=== PATIENT | male | born 1985 | race Caucasian/White ===

== ENCOUNTER → 2025-03-04 | Outpatient (CLI) | payer OTHER, SELFPAY ==
[2025-03-05 18:08] LABS: H. PYLORI STOOL AG Positive (Negative)
[2025-03-09 08:10] LABS: Calprotectin, Stool 14 ug/g (0-120)
== END | disposition home or self-care (01) ==
PROVIDERS: Referring Provider Student in an Organized Health Care Education/Training Program; Visit Provider Student in an Organized Health Care Education/Training Program
DX: A04.8 Other specified bacterial intestinal infections (principal); K58.9 Irritable bowel syndrome, unspecified
CPT/HCPCS: 36415; 83993; 87177; 87209; 87329; 87338; 87493

== ENCOUNTER → 2025-04-15 | Outpatient (CLI) | payer OTHER, SELFPAY ==
--- OUTSIDE RECORDS SUMMARY | 2025-04-15 14:52 | XMS RPT_ITS | CCD ---
Author Organization 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 Name Role Phone Kevin Crawley MD Primary Care Provider Unavailable Primary Care Provider Unavailabl e BERNADETTE BAEZLPI Attending Unavailable JUJU BAEZ Attending Unavailable KEVIN CRAWLEY Primary Care Unavailable JUJU BAEZ Attending Unavailable KEVIN CRAWLEY Primary Care Unavailable JUJU BAEZ Attending Unavailable KEVIN CRAWLEY Primary Care Unavailable Bibiana Castillo Attending Unavailable Bibiana Castillo Attending Unavailable Bibiana Castillo Referring Unavailable Care Physician, No Primary Primary Care Unava ilable AURELIO CLOUD Attending Unavailable SELF Referring Unavailable JAYLON GÓMEZ CHIDI Attending Unavailable MARY ESTRADA Referring Unavailable JAYLON GÓMEZ Attending Unavailable Medications Current Medications Medication Drug Class(es) Dates Sig (Normalized) Sig (Original) amphetamine aspartate 5 mg / amphetamine sulfate 5 mg / dextroamphetamine saccharate 5 mg / dextroamphetamine sulfate 5 mg oral tablet (14 sources) Central Nervous System Stimulant take 1 tablet by mouth once daily dextroamphetamine- amphetamine (ADDERALL) 20 mg tablet Take 20 mg by mouth once daily. Active Comment on above: Take 20 mg by mouth once daily. doxycycline monohydrate 100 mg oral capsule (14 sources) Tetracycline-class Drug Start: 06-05-2018 doxycycline monohydrate (MONODOX) 100 mg capsule Take 1 tablet twice a day for 10 days. Take with full glass of water & do not lie down for 1 hour after taking 20 capsule 06/05/2018 Active Comment on above: Take 1 tablet twice a day for 10 days. Take with full glass of water & do not lie down for 1 hour after taking griseofulvin 250 mg oral tablet (1 source) Start: 01-19-2025 End: 02-02-2025 take 1 tablet by mouth once daily Griseofulvin Ultramicrosize 250 mg tab Take 1 tablet by mouth once daily for 14 days. 14 tablet 01/19/2025 02/02/2025 Active metroNIDAZOLE 0.01 mg/mg topical gel (14 sources) Nitroimidazole Antimicrobial Start: 02-19-2020 metroNIDAZOLE (METROGEL) 1 % gel Indications: Rhinophyma , Rosacea apply to face daily 60 g 2 02/19/2020 Active Comment on above: apply to face daily mupirocin 0.02 mg/mg topical ointment (14 sources) RNA Synthetase Inhibitor Antibacterial Start: 07-07-2018 mupirocin (BACTROBAN) 2 % ointment Apply to nose twice a day up to 4 weeks 30 g 2 07/07/2018 Active Comment on above: Apply to nose twice a day up to 4 weeks predniSONE 20 mg oral tablet (1 source) Start: 01-19-2025 take 1 tablet by mouth three times daily, then take 1 tablet by mouth twice daily, then take 1 tablet by mouth once daily, then take 0.5 tablet by mouth once daily predniSONE (DELTASONE) 20 mg tablet 20 mg p.o. 3 times daily for 3 days, 20 mg p.o. twice daily for 2 days, 20 mg once a day for 1 day, half a tablet 1 day for 1 day 15 tablet 01/19/2025 Active sulfacetamide sodium 80 mg/ml / sulfur 40 mg/ml medicated liquid soap (14 sources) Sulfonamide Antibacterial Start: 09-26-2017 sulfacetamide sodium-sulfur (SUMAXIN TS) 8-4 % susp Indications: Rhinophyma , Rosacea wash face daily 1 Bottle 2 09/26/2017 Active Comment on above: wash face daily tretinoin 1 mg/ml topical cream (20 sources) Retinoid Start: 11-05-2022 End: 11-09-2024 tretinoin (RETIN-A) 0.1 % cream Apply a pea size amt every night 45 g 2 11/09/2024 Active Start: 11-12-2018 tretinoin (RET IN-A) 0.05 % cream Apply thin layer to entire face at bedtime 45 g 3 11/12/2018 Active Comment on above: Apply thin layer to entire face at bedtime Apply a pea size amt every night triamcinolone acetonide 0.001 mg/mg topical ointment (3 sources) Corticosteroid Start: 12-25-2024 End: 12-25-2024 triamcinolone acetonide (KENALOG) 0.1 % ointment Indications: Rash Apply as directed to affected area twice daily. 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 Other inflammatory condition of skin (7 sources) Rosacea; Translations: [Rosacea, unspecified] Chronic Other inflammatory condition of skin (1 source) Rhinophyma; 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] Onset: 06-08-2024 Chronic Other inflammatory condition of skin (1 source) Rosacea, unspecified; Translations: [Rosacea] Onset: 06-08-2024 Chronic Other skin disorders (10 sources) Scar conditions and fibrosis of skin; Translations: [Scar conditions and fibrosis of skin] Episodic Other skin disorders (1 source) Skin tag; Translations: [Other hypertrophic disorders of the skin] 06-24-2023 Episodic Other skin disorders (1 source) Sebaceous gland hypertrophy; Translations: [Other specified follicular disorders] 11-09-2024 Episodic Other skin disorders (1 source) Eruption; Translations: [Rash and other nonspecific skin eruption] 12-25-2024 Episodic Other skin disorders (1 source) Rash and other nonspecific skin eruption; Translations: [Rash] Onset: 12-25-2024 Episodic Residual codes; unclassified (2 sources) Patient encounter status; Translations: [Encounter for cosmetic surgery] Episodic Residual codes; unclassified (1 source) Encounter for cosmetic surgery; Translations: [Encounter for cosmetic procedure] Onset: 03-01-2025 Episodic Past or Other Problems Problem Classification Problem Date Documented Da te Episodic/Chronic Other skin disorders (1 source) Other specified follicular disorders; Translations: [Sebaceous hyperplasia] Onset: 11-09-2024 Episodic Other skin disorders (1 source) Scar conditions and fibrosis of skin; Translations: [Scar conditions and fibrosis of skin] Onset: 06-08-2024 Episodic Results Test Name Value Interpretation Reference Range Facility [facility]onal 03-21-2025 CNOV Office Visit (UCMN[facility] ) CELSO UP ([id number]) 1985 M Date Time Provider Department 03/21/25 8:35 PM JAYLON GÓMEZ [facility] During your visit today, we recorded the following information about you: Temperature Pulse Respiration Blood pressure 97.5 degrees 71/minute 16/minute 118/75 Weight 81.6 kg Jaylon Gómez MD 03/21/2025 8:50 PM Signed [facility] Subjective Celso Up is a 39 year old male. Patient presents with: Refill Request: Needs refill on tetracycline 500 mg , states he doesn't have enough for dosage 39-year-old patient presented here needs prescribed tetracycline 500 mg 4 times daily, patient was prescribed for 2 weeks but he is not short for a day and a half of the prescription. Patient is being treated for H. pylori. No other complaint. Review of Systems All other systems reviewed and are negative. Objective BP 118/75 (BP Position: Sitting) Pulse 71 Temp 36.4 ?C (97.5 ?F) Resp 16 Wt 81.6 kg (180 lb) SpO2 100% BMI 28.69 kg/m? Physical Exam Vitals and nursing note reviewed. Constitutional: Appearance: Normal appearance. HENT: Head: Normocephalic. Nose: Nose normal. Mouth/Throat: Mouth: Mucous membranes are moist. Cardiovascular: Rate and Rhythm: Normal rate and regular rhythm. Pulses: Normal pulses. Heart sounds: Normal heart sounds. Pulmonary: Effort: Pulmonary effort is normal. Breath sounds: Normal breath sounds. Neurological: Mental Status: He is alert. {ASSESSMENT/PLAN: 1. H. pylori infection - ICD9: 041.86, ICD10: A04.8 I gave the patient refill for 6 more dose will have him follow-up with his PCP treatment plans to discuss. Jaylon Gómez MD MDM Procedures Allergies As of Date: 03/21/2025 (No Known Allergies) Date Reviewed: 03/21/2025 Reviewed by: Jaylon Gómez MD - Fully Assessed Reason for Visit: Refill Request [94] Cmt: Needs refill on tetracycline 500 mg , states he doesn't have enough for dosage Primary Visit Diagnosis:H. pylori infection [A04.8] Order(s):tetracycline (SUMYCIN) 500 mg capTake 1 capsule by mouth four times daily for 2 days.Disp: 6 capsuleRfl: 0 Prescriptions as of 03/21/2025 - metroNIDAZOLE (FLAGYL) 500 mg tablet TAKE 1 TABLET BY MOUTH EVERY 6 HOURS FOR 2 WEEKS - pantoprazole DR (PROTONIX) 40 mg tablet TAKE 1 TABLET BY MOUTH ONCE DAILY FOR 2 WEEKS - tetracycline (SUMYCIN) 500 mg cap Take 1 capsule by mouth four times daily for 2 days. - predniSONE (DELTASONE) 20 mg tablet 20 mg p.o. 3 times daily for 3 days, 20 mg p.o. twice daily for 2 days, 20 mg once a day for 1 day, half a tablet 1 day for 1 day - triamcinolone acetonide (KENALOG) 0.1 % ointment Apply as directed to affected area twice daily. - tretinoin (RETIN-A) 0.1 % cream Apply a pea size amt every night - metroNIDAZOLE (METROGEL) 1 % gel apply to face daily - tretinoin (RETIN-A) 0.05 % cream Apply thin layer to entire face at bedtime - mupirocin (BACTROBAN) 2 % ointment Apply to nose twice a day up to 4 weeks - dextroamphetamine-amphetamine (ADDERALL) 20 mg tablet Take 20 mg by mouth once daily. - sulfacetamide sodium-sulfur (SUMAXIN TS) 8-4 % susp wash face daily Problem List As Of Date: 03/21/2025 (None) Prescriptions ordered this encounter Disp Refills Start End TETRACYCLINE 500 MG CAPSULE 6 ca* 0 03/21/2025 03/23/2025 Route: PO Sig: Take 1 capsule by mouth four times daily for 2 days. Medications Discontinued During This Encounter Prescriptions - doxycycline monohydrate (MONODOX) 100 mg capsule (Discontinued) Reported on 01/19/2025 - tetracycline (SUMYCIN) 500 mg cap (Discontinued) TAKE 1 CAPSULE BY MOUTH EVERY 6 HOURS FOR 2 WEEKS Encounter Status:Closed by JAYLON GÓMEZ on 03/21/25 [facility] [id number] 03-15-2025 [id number] TESTING PERFORMED AT [facility]. ORIGINAL REPORT ON FILE IN LAB CONTAINS ADDITIONAL TEST SITE INFORMATION. Giardia Lamblia EIA NEGATIVE [facility] Comment on above: Performed By: #### M 100.6796, M600.5000, L3100.1950, L7000.0700, M7400.3302 #### [facility] [address] [place], [address] Ova and Parasites 8623on OP OVA AND PARASITES EX AM, ROUTINE These results were obtained using wet preparation(s) and trichrome stained smear. This test does not include testing for Crytosporidium parvum, Cyclospora, or Microsporidia. One negative specimen does not rule out the possibility of a parasitic infection. TESTING PERFORMED AT [email or web address]. ORIGINAL REPORT ON FILE IN LAB CONTAINS ADDITIONAL TEST SITE INFORMATION. Ova/Parasite Exam NO OVA, CYSTS, OR PARASITES FOUND. Normal [facility] Comment on above: Performed By: #### M 100.6796, M600.5000, L3100.1950, L7000.0700, M7400.3302 #### [facility] [address] [place], [address] Calprotectin, Stoolon [address] 14 ug/g Normal 0-120 [facility] Comment on above: Result Comment: Conc entration Interpretation Follow-Up < 5 - 50 ug/g Normal None >50 -120 ug/g Borderline Re-evaluate in 4-6 weeks >120 ug/g Abnormal Repeat as clinically indicated Performed at: [facility] [id number] Scrap Charger: Kyler Luevano MD, Phone: [phone] Performed By: #### M [id number], M600.5000, L3100.1950, L7000.0700, M7400.3301 #### [facility] [address] [place], [address] H. PYLORI STOOL AGon 025 H PYLORI STL AG Positive Abnormal Negative [facility] Comment on above: Result Comment: Perf ormed at: [facility] [id number] Scrap Charger: Delmer Perez PhD, Phone: [phone] Performed By: #### M 1006796, M600.5000, L3100.1950, L7000.0700, M7400.3309 #### [facility] [address] [place], [address] CDIFF (PCR)on 03-04-2025 CDIFF Pending 027 027 NAP1-B1 Presumptive Negative *for epidemiolologic???use C. Diff PCR Negative- No toxigenic C. Diff Detected Normal [facility] Comment on above: Performed By: #### M 100.6796, M600.5000, L3100.1950, L7000.0700, M7400.3302 #### [facility] [address] [place], [address] Gastroenterology Visit Repor ton 03-04-2025 Gastroenterology Visit Report [facility] [address] [place] [address] OFFICE VISIT Date of Service: 03/04/25 MR#: [id number] Acct: [id number] Name: CELSO UP Rep #: [id number] : 1985 Provider: MARY Aguirre Age/Sex: 39/M Location: [facility] Status: Signed Intake Intake Visit Reasons: POSITIVE H PYLORI Chief Complaint: H. pylori IgG positive Allergies No Known Allergies Allergy (Verified 03/01/25 14:30) Medications ???Medication ???Instructions ???Recorded ???Confirmed ???Type cetirizine 10 mg capsule (Zyrtec) 10 mg PO QDAY PRN 03/04/25 History fexofenadine 60 mg capsule 60 mg PO Q12H 03/04/25 03/04/25 Hi story prednisone 5 mg tablet 5 mg PO QDAY 03/04/25 03/04/25 His tory tretinoin 0.01 % topical gel 1 applic topical QHS 03/04/2502/11 History PFSH Medical History Urticaria H. pylori infection Family History Father Diabetes Social History Smoking Status: Never smoker alcohol intake: never HPI HPI Chief Complaint: H. pylori IgG positive Details: CELSO UP, is a 39 M who presents to the office today for establishment. Patient referred from dermatologists after he had a positive serum H. pylori IgG. Patient started having diarrhea and hives in October 2024. He was having bowel movements nonstop and eventually started to take Imodium. Since then his bowels have not gone back to normal. He is having 1-2 soft bowel movements per day. He has dull crampy lower abdominal pain. Originally when this started he was doing a keto diet but he has since stopped this. He denies any medication changes. He denies upper GI symptoms including heartburn, nausea, vomiting or epigastric pain. He continues to work with dermatology for his hives. At first they thought it was fungal but hives were refractory to antifungals. He is currently on prednisone for treatment of his hives. Patient had plastic surgery about a year ago to remove loose skin in his chest and abdomen. He notes that when the hives started it seemed to follow the suture lines but is now diffuse all over his body. ROS Const Constitutional: Positive for fatigue; No fever(s) or weight change ENT ENT: No difficulty swallowing Gastro GI: Positive for change in bowel habits; No abdominal pain, belching, bloating, change in stool character, coffee ground emesis, constipation, cramping, diarrhea, heartburn, difficulty swallowing, feeling full early, excessive flatus, incontinent of stools, Vomiting blood/hematemesis, Blood in stool, loose stools, Black,tarry stools, nausea/dyspepsia, pain with swallowing, vomiting or other Musc Musculoskeletal: No joint pain Skin Skin: Positive for itchy eyes and rash; No yellowing of the eye Psych Psychiatric: No anxiety and No depression Endo Endocrine: Positive for fatigue; No weight change Aller/Imm Allergy/Immunologic: Positive for itchy eyes Ellis/Lymp Hematologic/Lymphatic: No easy bleeding or easy bruising Exam Const General: cooperative and comfortable Nutritional Appearance: average body habitus Orientation: alert [facility] Head: normal to inspection Ears: hearing grossly normal bilaterally Eyes General: appearance normal, both eyes and all related structures Neck Neck: normal visual inspection Chest Chest palpation inspection: normal inspection of the chest Resp Effort Inspection: normal respiratory effort Cardio Rate: regular rate Rhythm: regular rhythm GI Inspection: normal to inspection and scar Auscultation: normal bowel sounds Palpation: soft and nontender Assessment and Plan Assessment and Plan (1) H. pylori infection: Status: Acute Plan: Celso is a 39-year-old male patient here today for evaluation after having a positive serum IgG H. pylori test and loose stool since October 2024. Patient symptoms started with whole body urticaria and diarrhea for few weeks. He started Imodium and the diarrhea subsided but he continues to have abnormal and soft stools. Patient was seen by sap hana developer who ordered numerous testing which included the H. pylori test. This is the only test that was positive so far. Will order H. pylori stool antigen, enteric pathogens O P, Giardia and calprotectin. Pending results will treat H. pylori with quadruple therapy. 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 We may consider colonoscopy and/or EGD in the future. - Stool testing - Treat H. pylori if positive - Consider colonoscopy and/or EGD - Follow-up as needed (2) Loose stools: Status: Acute Orders: Orders Calprotectin, Stool Today A04.8 - Other specified bacterial intestinal infections CDIFF (PCR) Today A04. (more content not included)... [facility] CELSO UP ([id number]) 1985 M Date Time Provider Department 03/01/25 8:45 AM JUJU BAEZ During your visit today, we recorded the following information about you: Janet Stover LPN 03/01/2025 8:33 AM Signed Direct line to schedule [phone] or email [email or web address] Main campus: Saturday AND [place] (Uzair Martell): Saturday AND Saturday [facility] Care Instructions It is normal for the skin to be red and swollen after your laser treatment. Most of the redness and swelling subsides within 24 to 48 hours, but occasionally can last for up to one week. -It is fine to wear makeup on the treated area the day after treatment -Do not rub, scratch, or pick at the treated area -You may apply ice to reduce swelling and discomfort for the first 4 hours after your treatment- it is best to ice immediately after your treatment and for 10 minutes of each hour for the 4 hours after your treatment -Do not exercise for 24 hours after your treatment -Please call the office immediately if the area becomes tender, reddened or shows signs of infection. - Avoid exposure to the sun. If sun exposure is expected, apply an SPF 30 or higher sunblock to prevent pigmentation changes until the lesion is healed. Care Of The Treated Area -You can apply a gentle moisturizer or Aqpahor/Vaseline to the treated area. It is important to keep the area moist until healed. -Showers are permitted, but gently pat the area dry. Do not rub with a towel or washcloth as the area is extremely delicate while the bruising (purpura) are present. -Any discomfort you may have (usually not lasting more than a few hours, if any) can be relieved with acetaminophen (Tylenol) or ice packs. If you have any questions or concern, please call the office where you had your treatment. [phone] ([place]) or [phone] ([facility]) Juju Baez MD Dermatology AND Cosmetic Surgery [facility] Instructions Pre-treatment instructions: Tell your doctor if you are taking Isotretinoin (Accutane) or have taken in the last 6 months Avoid having a suntan or using a spray ruby/brozer before treatment You cannot be treated if you are Treatment: When you arrive, a topical anesthetic will be applied to your skin for approximately 1 hour. It is best to arrive with clean skin. You may wish to bring something to help you pass the time (ie book, laptop, iPad, magazine) The length of your time in the office varies, but is usually ~90 minutes. Although there can be some areas treated that feel sensitive, the laser is generally well tolerated Post treatment: Any gentle cleanser is fine (Dove, Cetaphil, Neutrogena). Do not use any harsh, anti-aging/exfoliating cleansers, medications, or scrubs for 1 week after your treatment. You will experience a sunburn-like, burning sensation for about 1 hour after your treatment, then virtually no discomfort. Some areas can feel more sensitive to touch for slightly longer Cool compresses or ice packs are used post treatment for comfort and to decrease swelling. It is fine to take ibuprofen/tylenol for discomfort What to expect in the days after treatment: Redness- You will notice a pink/red tone to your skin for 4-7 days. This is a normal sign that the skin is healing. Some areas can turn to a bronze-like color and last for a few weeks. This is normal. Pinpoint spotting- this is normal and the spots can range from brown to red. Do not try to scrub off, they will slough off in several days Swelling- this varies from person to person and generally resolves in 2-3 days Sunscreen- it is important to avoid sun exposure for 2 weeks post treatment as well as in between your treatments. Use sunscreen with UVA/UVB protection (either with zinc oxide or titanium dioxide) with an SPF of at least 30. Avoid direct sunlight and wear sun protective clothing (wide brimmed hat) Itching/dryness- These are common symptoms once the skin has healed initially. Flakiness and dry crusting will gradually clear. Use bland moisturizers only and/or moisturizing sunscreens. Avoid anti-aging moisturizers with AHA or retinol in them Makeup AND sunscreen may be applied after 48 hours Unexpected complications and unwanted side effects such as blistering and scabbing rarely occur. Please call the office immediately if any of these develop What to expect later: More than one treatment is needed to achieve desired results. Both you and your doctor can discuss the number of treatments needed, that are spaced apart at a minimum of 4-6 weeks Over the following weeks and months there will be progressive improvement and evolution of beneficial changes associated with the appearance of healthy youthful skin If you have any questions or concern, please call the office at [phone] (more content not included)... Normal [facility] CALLIE BY IFA WITH REFLEXon Nuclear Ab Ql (S) Negative Normal Negative [facility] Comment on above: Order Comment: Speci men Type: BLOOD SPECIMENOrdering Facility: [facility] Address: [address] [place], [place] [id number] Result Comment: Anti -nuclear antibody test is used as an aid in diagnosis of systemic autoimmune diseases. Where positive and clinically warranted, follow-up using disease-specific testing is recommended. Low positive titers are not uncommon with advanced age, certain chronic infections, and malignancies among others. Test methodology: Indirect fluorescence immunoassay (IFA) using HEp-2 cells. Performed By: #### A NAIFR ####[facility] [id number] [place] [address] [place] B. burgdorferi IgG and IgM p avery (S)on 02-11-2025 B. burgdorferi IgG+IgM Qn (S) Negative Normal Negative [facility] Comment on above: Order Comment: Speci men Type: BLOOD SPECIMENOrdering Facility: [facility] Address: [address] [place] [address] Result Comment: Rece nt infection with B. burgdorferi sensu lato cannot be excluded if the specimen collected within four weeks after the onset of signs and symptoms or within six weeks after a known tick exposure. Clinical and epidemiological correlation is required. Performed By: #### 3 4942-3 ####[facility] [id number] [place] [address] [place] CBC W Auto Differential pane l (Bld)on 02-11-2025 Basophils (Bld) [#/Vol] 10*3/uL Normal <0.11 [facility] Comment on above: Order Comment: Parminder landry Type: BLOOD SPECIMEN Ordering Facility: [facility] Address: [address] [place] [address] Performed By: #### 5 7021-8 #### [facility] CLIA [id number] [facility] [address] [place] [address] [place] Basophils/100 WBC (Bld) 0.3 % Normal [facility] Comment on above: Order Comment: Speci gris Type: BLOOD SPECIMEN Ordering Facility: [facility] Address: [address] [place] [address] Performed By: #### 5 7021-8 #### [facility] CLIA [id number] [address] [facility] [address] [place] [address] [place] Differential cell count method Nom (Bld) Auto Normal [facility] Comment on above: Order Comment: Speci men Type: BLOOD SPECIMEN Ordering Facility: [facility] Address: [address] [place] [address] Performed By: #### 5 7021-8 #### [facility] CLIA [id number] [address] [place] [address] [place] Eosinophils (Bld) [#/Vol] 0.23 10*3/uL Normal <0.46 [facility] Comment on above: Order Comment: Speci men Type: BLOOD SPECIMEN Ordering Facility: [facility] Address: [address] [place] [address] Performed By: #### 5 7021-8 #### [facility] CLIA [id number] [address] [facility] [address] [place] [address] [place] Eosinophils/100 WBC (Bld) 3.4 % Normal [facility] Comment on above: Order Comment: Speci men Type: BLOOD SPECIMEN Ordering Facility: [facility] Address: [address] [place] [address] Performed By: #### 5 7021-8 #### [facility] CLIA [id number] [address] [place] [address] [place] Erythrocyte distribution width (RBC) [Ratio] 12.6 % Normal 11.5-15.0 [facility] Comment on above: Order Comment: Speci men Type: BLOOD SPECIMEN Ordering Facility: [facility] Address: [address] [place] [address] Performed By: #### 5 7021-8 #### [facility] CLIA [id number] [address] [place], [place] [address] [place] Hematocrit (Bld) [Volume fraction] 45.2 % Normal 39.0-51.0 [facility] Comment on above: Order Comment: Speci men Type: BLOOD SPECIMEN Ordering Facility: [facility] Address: [address] [place] [address] Performed By: #### 5 7021-8 #### [facility] CLIA [id number] [address] [place] [address] [place] Hemoglobin (Bld) [Mass/Vol] 15.9 g/dL Normal 13.0-17.0 [facility] Comment on above: Order Comment: Speci men Type: BLOOD SPECIMEN Ordering Facility: [facility] Address: [address] [place] [address] Performed By: #### 5 7021-8 #### [facility] CLIA [id number] [address] [place] [address] [place] Immature granulocytes (Bld) [#/Vol] 10*3/uL Normal <0.10 [facility] Comment on above: Order Comment: Speci men Type: BLOOD SPECIMEN Ordering Facility: [facility] D[facility] community [facility] Address: [address] [place] [address] Performed By: #### 5 7021-8 #### [facility] CLIA [id number] [address] [place] [address] [place] Immature granulocytes/100 WBC (Bld) 0.3 % Normal [facility] Comment on above: Order Comment: Speci men Type: BLOOD SPECIMEN Ordering Facility: [facility] Address: [address] [place] [address] Performed By: #### 5 7021-8 #### [facility] CLIA [id number] [address] [facility] [address] [place], [place] [address] [place] Lymphocytes (Bld) [#/Vol] 1.20 10*3/uL Normal 1.00-4.00 [facility] Comment on above: Order Comment: Speci men Type: BLOOD SPECIMEN Ordering Facility: [facility] D[facility] community [facility] Address: [address] [place] [address] Performed By: #### 5 7021-8 #### [facility] CLIA [id number] [address] [facility] [address] [place] [address] [place] Lymphocytes/100 WBC (Bld) 17.9 % Normal [facility] Comment on above: Order Comment: Speci men Type: BLOOD SPECIMEN Ordering Facility: [facility] Address: [address] [place] [address] Performed By: #### 5 7021-8 #### [facility] CLIA [id number] [address] [facility] [address] [place] [address] [place] MCH (RBC) [Entitic mass] 29.3 pg Normal 26.0-34.0 [facility] Comment on above: Order Comment: Speci men Type: BLOOD SPECIMEN Ordering Facility: [facility] Address: [address] [place] [address] Performed By: #### 5 7021-8 #### [facility] CLIA [id number] [address] [facility] [address] [address] [place] MCHC (RBC) [Mass/Vol] 35.2 g/dL Normal 30.5-36.0 [facility] Comment on above: Order Comment: Speci men Type: BLOOD SPECIMEN Ordering Facility: [facility] Address: [address] [place] [address] Performed By: #### 5 7021-8 #### [facility] CLIA [id number] [address] [facility] [address] [place] [address] [place] MCV (RBC) [Entitic vol] 83.4 fL Normal 80.0-100.0 [facility] Comment on above: Order Comment: Speci men Type: BLOOD SPECIMEN Ordering Facility: [facility] Address: [address] [place] [address] Performed By: #### 5 7021-8 #### [facility] CLIA [id number] [address] [place] [address] [place] Monocytes (Bld) [#/Vol] 0.33 10*3/uL Normal <0.87 [facility] Comment on above: Order Comment: Speci men Type: BLOOD SPECIMEN Ordering Facility: [facility] Address: [address] [place] [address] Performed By: #### 5 7021-8 #### [facility] CLIA [id number] [address] [place] [address] [place] Monocytes/100 WBC (Bld) 4.9 % Normal [facility] Comment on above: Order Comment: Speci men Type: BLOOD SPECIMEN Ordering Facility: [facility] Address: [address] [place] [address] Performed By: #### 5 7021-8 #### [facility] CLIA [id number] [address] [place] [address] [place] Neutrophils (Bld) [#/Vol] 4.89 10*3/uL Normal 1.45-7.50 [facility] Comment on above: Order Comment: Speci men Type: BLOOD SPECIMEN Ordering Facility: [facility] Address: [address] [place] [address] Performed By: #### 5 7021-8 #### [facility] CLIA [id number] [address] [place] [address] [place] Neutrophils/100 WBC (Bld) 73.2 % Normal [facility] Comment on above: Order Comment: Speci men Type: BLOOD SPECIMEN Ordering Facility: [facility] D[facility] community [facility] Address: [address] [place] [address] Performed By: #### 5 7021-8 #### [facility] CLIA [id number] [address] [place] [address] [place] Platelet mean volume (Bld) [Entitic vol] 10.3 fL Normal 9.0-12.7 [facility] Comment on above: Order Comment: Speci men Type: BLOOD SPECIMEN Ordering Facility: [facility] Address: [address] [place] [address] Performed By: #### 5 7021-8 #### [facility] CLIA [id number] [address] [facility] [address] [place] [address] [place] Platelets (Bld) [#/Vol] 243 10*3/uL Normal 150-400 [facility] Comment on above: Order Comment: Speci men Type: BLOOD SPECIMEN Ordering Facility: [facility] Address: [address] [place] [address] Performed By: #### 5 7021-8 #### [facility] CLIA [id number] [address] [place] [address] [place] RBC (Bld) [#/Vol] 5.42 10*6/uL Normal 4.20-6.00 [facility] Comment on above: Order Comment: Speci men Type: BLOOD SPECIMEN Ordering Facility: [facility] Address: [address] [place] [address] Performed By: #### 5 7021-8 #### [facility] CLIA [id number] [address] [address] [place] WBC (Bld) [#/Vol] 6.69 10*3/uL Normal 3.70-11.00 [facility] Comment on above: Order Comment: Speci men Type: BLOOD SPECIMEN Ordering Facility: [facility] Address: [address] [place] [address] Performed By: #### 5 7021-8 #### [facility] CLIA [id number] [address] [facility] [address] [place] [address] [facility] [place] Comprehensive metabolic 2000 panelon 02-11-2025 Albumin [Mass/Vol] 4.4 g/dL Normal 3.2-5.0 [facility] Comment on above: Order Comment: Speci men Type: BLOOD SPECIMEN Ordering Facility: [facility] Address: [address] [place] [address] Performed By: #### 2 4323-8 #### [facility] CLIA [id number] [address] [place] [address] [place] ALP [Catalytic activity/Vol] 85 U/L Normal 45-117 [facility] Comment on above: Order Comment: Speci men Type: BLOOD SPECIMEN Ordering Facility: [facility] Address: [address] [place] [address] Performed By: #### 2 4323-8 #### [facility] CLIA [id number] [address] [place] [address] [place] ALT [Catalytic activity/Vol] 25 U/L Normal 13-61 [facility] Comment on above: Order Comment: Speci men Type: BLOOD SPECIMEN Ordering Facility: [facility] Address: [address] [place] [address] Result Comment: Resu lts may be falsely depressed after the administration of Sulfasalazine and/or Sulfapyridine. Performed By: #### 2 4323-8 #### [facility] CLIA [id number] [address] [place] [address] [place] Anion gap [Moles/Vol] 10 mmol/L Normal 5-16 [facility] Comment on above: Order Comment: Speci men Type: BLOOD SPECIMEN Ordering Facility: [facility] Address: [address] [place] [address] Performed By: #### 2 4323-8 #### [facility] CLIA [id number] [address] [place] [address] [place] AST [Catalytic activity/Vol] 20 U/L Normal 8-34 [facility] Comment on above: Order Comment: Speci men Type: BLOOD SPECIMEN Ordering Facility: [facility] Address: [address] [place] [address] Result Comment: Resu lts may be falsely depressed after the administration of Sulfasalazine and/or Sulfapyridine. Performed By: #### 2 4323-8 #### [facility] CLIA [id number] [address] [place] [address] [place] Bilirubin [Mass/Vol] 0.6 mg/dL Normal 0.2-1.0 [facility] Comment on above: Order Comment: Speci men Type: BLOOD SPECIMEN Ordering Facility: [facility] Address: [address] [place] [address] Performed By: #### 2 4323-8 #### [facility] CLIA [id number] [address] [place] [address] [place] Calcium [Mass/Vol] 10.0 mg/dL Normal 8.5-10.5 [facility] Comment on above: Order Comment: Speci men Type: BLOOD SPECIMEN Ordering Facility: [facility] Address: [address] [place] [address] Performed By: #### 2 4323-8 #### [facility] CLIA [id number] [address] [place] [address] [place] Chloride [Moles/Vol] 100 mmol/L Normal 98-107 [facility] Comment on above: Order Comment: Speci men Type: BLOOD SPECIMEN Ordering Facility: [facility] Address: [address] [place] [address] Performed By: #### 2 4323-8 #### [facility] CLIA [id number] [address] [place] [address] [place] CO2 [Moles/Vol] 29 mmol/L Normal 21-32 [facility] Comment on above: Order Comment: Speci men Type: BLOOD SPECIMEN Ordering Facility: [facility] Derm[facility]ology community [facility] Address: [address] [place] [address] Performed By: #### 2 4323-8 #### [facility] CLIA [id number] [address] [place] [address] [place] Creatinine [Mass/Vol] 0.91 mg/dL Normal 0.50-1.40 [facility] Comment on above: Order Comment: Speci men Type: BLOOD SPECIMEN Ordering Facility: [facility] Address: [address] [place] [address] Result Comment: Alejandra ents receiving either N-Acetylcysteine (NAC) or Metamizole prior to venipuncture, may have falsely depressed results. Performed By: #### 2 4323-8 #### [facility] CLIA [id number] [address] [place] [address] [place] eGFRcr SerPlBld CKD-EPI 2020 109 mL/min/1.73m??? Normal >=60 [facility] Comment on above: Order Comment: Speci men Type: BLOOD SPECIMEN Ordering Facility: [facility] Address: [address] [place] [address] Result Comment: Daija mated Glomerular Filtration Rate (eGFR) is calculated using the 2020 CKD-EPI creatinine equation. This equation utilizes serum creatinine, sex, and age as parameters. The creatinine assay has traceable calibration to isotope dilution-mass spectrometry. Refer to KDIGO guidelines for clinical interpretation. In patients with unstable renal function, e.g. those with acute kidney injury, the eGFR may not accurately reflect actual GFR. Performed By: #### 2 4323-8 #### [facility] CLIA [id number] [address] [place] [address] [place] Glucose [Mass/Vol] 84 mg/dL Normal 70-100 [facility] Comment on above: Order Comment: Speci men Type: BLOOD SPECIMEN Ordering Facility: [facility] Address: [address] [place] [address] Result Comment: The [place] Diabetes Association (ADA) provides guidance for cutoff values for fasting glucose and random glucose. The ADA defines fasting as no caloric intake for at least 8 hours. Fasting plasma glucose results between 100 to 125 mg/dL indicate increased risk for diabetes (prediabetes). Fasting plasma glucose results greater than or equal to 126 mg/dL meet the criteria for diagnosis of diabetes. In the absence of unequivocal hyperglycemia, results should be confirmed by repeat testing. In a patient with classic symptoms of hyperglycemia or hyperglycemic crisis, random plasma glucose results greater than or equal to 200 mg/dL meet the criteria for diagnosis of diabetes. Reference: Standards of Medical Care in Diabetes 2016, [employer] Diabetes Association. Diabetes Care. 2016.39(Suppl 1). Results may be falsely elevated after the administration of Sulfapyridine. Results may be falsely depressed after the administration of Sulfasalazine. Performed By: #### 2 4323-8 #### [facility] CLIA [id number] [address] [place] [address] [place] Potassium [Moles/Vol] 3.7 mmol/L Normal 3.5-5.1 [facility] Comment on above: Order Comment: Parminder landry Type: BLOOD SPECIMEN Ordering Facility: [facility] Address: [address] [place] [address] Performed By: #### 2 4323-8 #### [facility] CLIA [id number] [address] [place] [address] [place] Protein [Mass/Vol] 7.9 g/dL Normal 6.0-8.5 [facility] Comment on above: Order Comment: Parminder landry Type: BLOOD SPECIMEN Ordering Facility: [facility] Address: [address] [place] [address] Performed By: #### 2 4323-8 #### [facility] CLIA [id number] [address] [place] [address] [place] Sodium [Moles/Vol] 139 mmol/L Normal 136-145 [facility] Comment on above: Order Comment: Randeei gris Type: BLOOD SPECIMEN Ordering Facility: [facility] Address: [address] [place] [address] Performed By: #### 2 4323-8 #### [facility] CLIA [id number] [address] [place] [address] [place] Urea nitrogen [Mass/Vol] 11 mg/dL Normal - [facility] Comment on above: Order Comment: Parminder landry Type: BLOOD SPECIMEN Ordering Facility: [facility] Address: [address] [place] [address] Performed By: #### 2 4323-8 #### [facility] CLIA [id number] [address] [place] [address] [place] H. pylori IgG IA Qlon 2024 H. PYLORI IGG, QUAL Positive Abnormal Negative [facility] Comment on above: Order Comment: Speccrispin landry Type: BLOOD SPECIMENOrdering Facility: [facility] Address: [address] [place] [address] Result Comment: The result suggests recent or past infection with H. pylori. Clinical correlation is required. Where clinically warranted, follow up testing is suggested including Urea Breath Test or H. pylori stool antigen test. Performed By: #### 1 7859-0 ####[facility] [id number] [place] [address] [place] HBV core Ab Ser Qlon HBV core Ab Ql (S) Non-Reactive Normal Nonreactive [facility] Comment on above: Order Comment: Parminder landry Type: BLOOD SPECIMEN Ordering Facility: [facility] Address: [address] [place] [address] Result Comment: Resu lts were obtained with the [employer] IM IgM assay. Values obtained with different manufactures' assay methods may not be used interchangeably. Performed By: #### 1 1572-5, 81261-4, 05435-7, 67312-6, 5195-3 #### [facility] CLIA [id number] [address] [place] [address] [place] HBV surface Ab Ql (S)on HBV surface Ab Qn (S) <3.10 Normal [facility] Comment on above: Order Comment: Speci gris Type: BLOOD SPECIMEN Ordering Facility: [facility] Address: [address] [place] [address] Result Comment: STAT US OF IMMUNITY Protective Immunity: greater than or equal to 10 mIU/mL (Traceable to WHO International Reference Preparation) No Protective Immunity: less than 10 mIU/mL Note: The magnitude of the measured result above the cutoff is not indicative of the total amount of antibody present. Performed By: #### 1 1572-5, 28256-3, 23626-4, 71639-8, 5195-3 #### [facility] CLIA [id number] [address] [place] [address] OF [facility] HBV surface Ab Ser Qlon 10-0 HBV surface Ab Ql (S) Negative Normal [facility] Comment on above: Order Comment: Speci gris Type: BLOOD SPECIMEN Ordering Facility: [facility] Address: [address] [place] [address] Result Comment: No s erological evidence of immunity to Hepatitis B Virus. Performed By: #### 1 1572-5, 32553-5, 97882-9, 67767-8, 519-3 #### [facility] CLIA [id number] [address] [place] [address] OF [facility] HBV surface Ag Ser Qlon 10-0 HBV surface Ag Ql (S) Non-Reactive Normal Equivocal, Nonreactive [facility] Comment on above: Order Comment: Speci gris Type: BLOOD SPECIMENOrdering Facility: [facility] Address: [address] [place] [address] Result Comment: Resu lts were obtained with the [employer] IM IgM assay. Values obtained with different manufactures' assay methods may not be used interchangeably. Performed By: #### 1 1572-5, 43214-8, 89843-1, 22082-0, 5195-3 ####[facility] [id number] [place] [address] [place] HCV Ab Ser Qlon 02-11-2025 HCV Ab Ql (S) Non-Reactive Normal Nonreactive [facility] Comment on above: Order Comment: Speci men Type: BLOOD SPECIMENOrdering Facility: [facility] Address: [address] [place] [address] Result Comment: Scre ening test negative Nonreactive HCV Antibody Screen is consistent with no HCV infection, unless recent infection is suspected or other evidence exists to indicate HCV infection. Results were obtained with the [employer] IM IgG assay. Values obtained with different manufactures' assay methods may not be used interchangeably. Performed By: #### 1 1572-5, 04827-9, 90196-0, 83968-6, 5195-3 ####[facility] [id number] [place] [address] [place] HIV 1+2 Ab IA Qlon HIV 1+2 Ab+HIV1 p24 Ag IA Ql Non-Reactive Normal Nonreactive [facility] Comment on above: Order Comment: Speci men Type: BLOOD SPECIMENOrdering Facility: [facility] Address: [address] [place] [address] Result Comment: Nonr eactive: Less than 1.0 index value Specimens with an index value <1.0 are considered nonreactive for antibodies to HIV-1, HIV-2, and p24 antigen by the [employer] IM CHIV assay. Performed By: #### 3 1201-7 ####[facility] [id number] [place] [address] [place] Rheumatoid fact SerPl-aCncon 02-11-2025 Rheumatoid factor Qn 7 [IU]/mL Normal 0-15 [facility] Comment on above: Order Comment: Speci men Type: BLOOD SPECIMEN Ordering Facility: [facility] Address: [address] [place] [address] Performed By: #### 1 1572-5, 83095-4, 08190-1, 65583-5, 5195-3 #### [facility] CLIA [id number] [address] [place] [id number] [place] THYROGLOBULIN ANTIBODYon Thyroglobulin Ab Qn [IU]/mL Normal <4.0 [facility] Comment on above: Order Comment: Parminder landry Type: BLOOD SPECIMENOrdering Facility: [facility] Address: [address] [place] [address] Result Comment: The Thyroglobulin Antibody test was performed using the [employer] DXI paramagnetic particle chemiluminescent immunoassay method. Results obtained with different assay methods or kits cannot be used interchangeably. Performed By: #### T [facility] ####[facility] [id number] [place] [address] [place] THYROGLOBULIN BY LC-MS/MS, S BRENDA OR PLASMA, FOR THYROGLOBULIN ANTIBODY INTERFERENCEon 02-11-2025 THYROGLOBULIN, LC-MS/MS 18.6 ng/mL Normal 1.3-31.8 [facility] Comment on above: Order Comment: Parminder landry Type: BLOOD SPECIMENOrdering Facility: [facility] Address: [address] [place] [address] Result Comment: Resu lts obtained with different test methods or kits cannot be used interchangeably. Thyroglobulin results, regardless of concentration, should not be interpreted as absolute evidence for the presence or absence of papillary or follicular thyroid cancer. Thyroglobulin testing is not recommended for use as a screening procedure to detect the presence of thyroid cancer in the general population. INTERPRETIVE INFORMATION: Thyroglobulin by LC-MS/MS, Serum/Plasma Lower limit of detection for Thyroglobulin by LC-MS/MS is 0.5 ng/mL. This test was developed and its performance characteristics determined by [facility]. It has not been cleared or approved by the [place] Food and Drug Administration. This test was performed in a CLIA certified laboratory and is intended for clinical purposes. Performed By: [facility] [address] [place] [id number] Emr Trainer: Hany Kurtz MD, PhD CLIA Number: [id number] Performed By: #### T [facility] ####[facility]ITAL[facility] [id number] [place] [address] THYROID PEROXIDASE ANTIBODYo n 02-11-2025 TPO Ab Qn [IU]/mL Normal <5.6 [facility] Comment on above: Order Comment: Speci gris Type: BLOOD SPECIMENOrdering Facility: [facility] Address: [address] [place] [address] Result Comment: Thyr oid Peroxidase Antibody test is used as an aid in diagnosis of autoimmune thyroid disease. Clinical correlation is required. Performed By: #### M ICRO ####[facility] [id number] [address] [place] TRYPTASE BLOODon 02-11-2025 Tryptase [Mass/Vol] 7.9 ug/L Normal <8.4 [facility] Comment on above: Order Comment: Speci gris Type: BLOOD SPECIMENOrdering Facility: [facility] Address: [address] [place] [address] Performed By: #### T RYPT ####[facility] [id number] [address] [place] CNOVon 01-19-2025 CNOV Office Visit ([facility] ) CELSO UP ([id number]) 1985 M Date Time Provider Department 01/19/25 8:55 PM JAYLON GÓMEZ [facility] During your visit today, we recorded the following information about you: Temperature Pulse Respiration Blood pressure 99.3 degrees 89/minute 20/minute 118/69 Weight 80.7 kg Jaylon Gómez MD 01/19/2025 9:08 PM Signed [facility] Celso Up is a 39 year old male. Patient presents with: Skin Rashes: Entered by patient Rash: Rash all over his body that started back in june . Stated that he has has syphilis biopsy done that was negative. 39-year-old patient presented here as a rash that comes and goes. Other than the itching and irritation no other complaint. Patient states that he used some antifungal and the rash cleared up but when he stopped using the antifungal the rash comes back. He talked to his sap hana developer they told him they do not believe his fungal. Patient is here for second opinion no other complaint. Review of Systems Skin: Positive for rash. All other systems reviewed and are negative. Objective BP 118/69 Pulse 89 Temp 37.4 ?C (99.3 ?F) (Temporal) Resp 20 Wt 80.7 kg (178 lb) SpO2 98% BMI 28.37 kg/m? Physical Exam Vitals and nursing note reviewed. Constitutional: Appearance: Normal appearance. Cardiovascular: Rate and Rhythm: Normal rate and regular rhythm. Pulses: Normal pulses. Heart sounds: Normal heart sounds. Pulmonary: Effort: Pulmonary effort is normal. Breath sounds: Normal breath sounds. Abdominal: Palpations: Abdomen is soft. Skin: Comments: Skin is erythematous and swollen there is a slightly raised lesion, there is general distribution. Neurological: Mental Status: He is alert. {ASSESSMENT/PLAN: 1. Acute dermatitis - ICD9: 692.9, ICD10: L30.9 I discussed with the patient and we will plan on a short course of prednisone. And a short course of griseofulvin will have him follow-up with his sap hana developer treatments and plans to discuss. Jaylon Gómez MD MDM Procedures Referring Provider: SELF [200] Allergies As of Date: 01/19/2025 (No Known Allergies) Date Reviewed: 01/19/2025 Reviewed by: Jaylon Gómez MD - Fully Assessed Reason for Visit: Skin Rashes [4234] Cmt: Entered by patient Rash [1087] Cmt: Rash all over his body that started back in june . Stated that he has has syphilis biopsy done that was negative. Primary Visit Diagnosis:Acute dermatitis [L30.9] Order(s):Griseofulvin Ultramicrosize 250 mg tabTake 1 tablet by mouth once daily for 14 days.Disp: 14 tabletRfl: 0 predniSONE (DELTASONE) 20 mg svgaez31 mg p.o. 3 times daily for 3 days, 20 mg p.o. twice daily for 2 days, 20 mg once a day for 1 day, half a tablet 1 day for 1 dayDisp: 15 tabletRfl: 0 Prescriptions as of 01/19/2025 - Griseofulvin Ultramicrosize 250 mg tab Take 1 tablet by mouth once daily for 14 days. - predniSONE (DELTASONE) 20 mg tablet 20 mg p.o. 3 times daily for 3 days, 20 mg p.o. twice daily for 2 days, 20 mg once a day for 1 day, half a tablet 1 day for 1 day - triamcinolone acetonide (KENALOG) 0.1 % ointment Apply as directed to affected area twice daily. - tretinoin (RETIN-A) 0.1 % cream Apply a pea size amt every night - metroNIDAZOLE (METROGEL) 1 % gel apply to face daily - tretinoin (RETIN-A) 0.05 % cream Apply thin layer to entire face at bedtime - mupirocin (BACTROBAN) 2 % ointment Apply to nose twice a day up to 4 weeks - doxycycline monohydrate (MONODOX) 100 mg capsule Take 1 tablet twice a day for 10 days. Take with full glass of water AND do not lie down for 1 hour after taking - dextroamphetamine-amphetamine (ADDERALL) 20 mg tablet Take 20 mg by mouth once daily. - sulfacetamide sodium-sulfur (SUMAXIN TS) 8-4 % susp wash face daily Problem List As Of Date: 01/19/2025 (None) Prescriptions ordered this encounter Disp Refills Start End GRISEOFULVIN ULTRAMICROSIZE 250 MG T* 14 t* 0 01/19/2025 02/02/2025 Route: PO Sig: Take 1 tablet by mouth once daily for 14 days. PREDNISONE 20 MG TABLET 15 t* 0 01/19/2025 Si mg p.o. 3 times daily for 3 days, 20 mg p.o. twice daily for 2 days, 20 mg once a day for 1 day, half a tablet 1 day for 1 day Encounter Status:Closed by JAYLON GÓMEZ on 01/19/25 [facility] CNOVon 12-25-2024 CNOV Office Visit ([facility] ) CELSO UP ([id number]) 1985 M Date Time Provider Department 12/25/24 3:40 PM AURELIO CLOUD [facility] During your visit today, we recorded the following information about you: Temperature Pulse Respiration Blood pressure 97.3 degrees 93/minute 16/minute 119/75 Weight 82.2 kg Micha Sanz MA 12/25/2024 4:14 PM Signed Pt here today for rash on left forearm since Saturday. Pt states it itches and wei. NALDO Trammell December 25, 2024 3:46 PM Aurelio Cloud APRN.[employer]PA[employer] 12/25/2024 3:57 PM Signed Contact Dermatitis You have been diagnosed with contact dermatitis. Contact dermatitis is a skin irritation. It is caused by contact with something. Sometimes the rash is from an allergic reaction. Sometimes it is from a simple chemical irritation. Some symptoms are itching and redness of the skin. In bad cases, there may be blistering. This condition is not often dangerous. However, it can be frustrating. Contact dermatitis can be caused, for example, by detergents, soaps and shampoos. It can be caused by nickel (found in jewelry) or poison lalita/oak. Other possible causes are wool, clothing starch, cleaning fluids, etc. Often, the item that caused the rash cannot be identified. If you have contact dermatitis often, see a sap hana developer (skin doctor) or ore roaster. There, you will have tests to find out the cause. If you are polly enough to find out the cause, you can avoid it in the future. General treatment for this condition includes: Antihistamines (anti-itch medicines). Some antihistamines can limit itching. This includes diphenhydramine (Benadryl?): 1-2 (25 mg) tablets every 6 hours). You can get this medicine without a prescription. It also includes prescription strength hydroxyzine (Atarax?). Antihistamines can make you drowsy. Therefore, use them with caution. Avoid them if you must be alert (on the job or when driving, for example). Steroid (cortisone) cream. Apply steroid creams sparingly (in small amounts) 2 times each day to the affected areas. These creams can be used until the skin irritation is gone and the skin feels normal to the touch. Put steroid creams on clean, damp skin. Then cover with a thick layer of moisturizer. As a general rule, do not use steroid cream on the face for more than 7 days. Do not use on other areas of the body for more than 14 days. Follow your doctor's instructions if he or she says that longer use is okay. Moisturizers. Put on skin moisturizers many times a day. 5 times or more is a good amount. Good moisturizers ?seal in? water and moisture to the skin. Use them directly after (on top of) steroid creams. Also use them (alone) many more times to keep the skin from looking and feeling dry. Use greasy, stiff moisturizers that are too thick to pour. Eucerin? cream (not lotion) is an example of a good brand. It can be bought over the counter (without a prescription). Vaseline? is a less expensive, good skin moisturizer. Food shortening (Crisco?) is another example of such a moisturizer. YOU SHOULD SEEK MEDICAL ATTENTION IMMEDIATELY, EITHER HERE OR AT THE NEAREST EMERGENCY DEPARTMENT, IF ANY OF THE FOLLOWING OCCURS: Symptoms get worse even with treatment. You get signs of infection at the affected areas. Signs include redness, pus, pain, swelling or fever (temperature higher than 100.4?F / 38?C). Aurelio Cloud APRN.ROCHELLE 12/25/2024 4:14 PM Signed [facility] Celso Up is a 39 year old male. Patient presents with: Skin Rashes: Entered by patient HPI Celso Up is a 39-year-old male presenting with a rash on the left forearm. Celso reports a rash on the left forearm that began as a small lesion resembling a fernandes on Saturday. The lesion has since expanded and spread within the same area, becoming pruritic. He notes that the rash is unresponsive to antifungal cream, which he had been using for a previous case of tinea cruris that has since resolved. He also tried hydrocortisone cream without significant improvement. The rash appears calmer in the morning but is exacerbated by sun exposure. He denies pain, fever, or chills. Celso is uncertain if the initial lesion was a bite and does not recall any specific incident that could have caused it. Review of Systems Constitutional: (-) fever, (-) chills Skin: (+) left forearm rash, (+) pruritus, (-) pain, (-) burning sensation Objective BP 119/75 (BP Site: Right Arm, BP Cuff Size: Large Adult) Pulse 93 Temp 36.3 ?C (97.3 ?F) Resp 16 Wt 82.2 kg (181 lb 1.7 oz) SpO2 97% BMI 28.87 kg/m? Physical Exam Vitals and nursing note reviewed. Constitutional: General: He is not in acute distress. Appearance: Normal appearance. He is not ill-appearing, toxic-appearing or diaphoretic. HENT: Head: Normocephalic and atrauma (more content not included)... Normal [facility] CNOVon 11-09-2024 CNOV Office Visit ([facility] ) CELSO UP ([id number]) 1985 M Date Time Provider Department 11/09/24 9:30 AM JUJU BAEZ During your visit today, we recorded the following information about you: Janet Stover LPN 11/09/2024 9:24 AM Addendum Direct line to schedule [phone] or email [email or web address] Main campus: Saturday AND [place] (Uzair Martell): Saturday AND Saturday CAUTERY POST CARE INSTRUCTIONS -Do not apply makeup to treated areas for 24 hours -Apply vaseline or aquaphor twice a day until all lesions are healed -It is normal for your skin to take up to 7 days to look and feel normal (there will be small crusted, scabbed areas immediately after treatment and can last up to 7 days) -Immediately after your procedure it is safe to use gentle skin cleansers (Dove, Cetaphil) and gentle facial moisturizers -Most people need a series of treatments (at least 2) to notice significant improvement. *DO NOT USE ANY GLYCOLIC ACIDS, RETINOIDS, OR ANTI-AGING/ ANTI-ACNE CARE PRODUCTS UNTIL AT LEAST 7 DAYS AFTER YOUR TREATMENT. V-beam Post Care Instructions It is normal for the skin to be red and swollen after your laser treatment. Most of the redness and swelling subsides within 24 to 48 hours, but occasionally can last for up to one week. -It is fine to wear makeup on the treated area the day after treatment -Do not rub, scratch, or pick at the treated area -You may apply ice to reduce swelling and discomfort for the first 4 hours after your treatment- it is best to ice immediately after your treatment and for 10 minutes of each hour for the 4 hours after your treatment -Do not exercise for 24 hours after your treatment -Please call the office immediately if the area becomes tender, reddened or shows signs of infection. - Avoid exposure to the sun. If sun exposure is expected, apply an SPF 30 or higher sunblock to prevent pigmentation changes until the lesion is healed. Care Of The Treated Area -You can apply a gentle moisturizer or Aqpahor/Vaseline to the treated area. It is important to keep the area moist until healed. -Showers are permitted, but gently pat the area dry. Do not rub with a towel or washcloth as the area is extremely delicate while the bruising (purpura) are present. -Any discomfort you may have (usually not lasting more than a few hours, if any) can be relieved with acetaminophen (Tylenol) or ice packs. If you have any questions or concern, please call the office where you had your treatment. [phone] ([place]) or [phone] ([facility]) Juju Baez MD Dermatology AND Cosmetic Surgery [facility] Dual Instructions Pre-treatment instructions: Tell your doctor if you are taking Isotretinoin (Accutane) or have taken in the last 6 months Avoid having a suntan or using a spray ruby/brozer before treatment You cannot be treated if you are Treatment: When you arrive, a topical anesthetic will be applied to your skin for approximately 1 hour. It is best to arrive with clean skin. You may wish to bring something to help you pass the time (ie book, laptop, iPad, magazine) The length of your time in the office varies, but is usually ~90 minutes. Although there can be some areas treated that feel sensitive, the laser is generally well tolerated Post treatment: Any gentle cleanser is fine (Dove, Cetaphil, Neutrogena). Do not use any harsh, anti-aging/exfoliating cleansers, medications, or scrubs for 1 week after your treatment. You will experience a sunburn-like, burning sensation for about 1 hour after your treatment, then virtually no discomfort. Some areas can feel more sensitive to touch for slightly longer Cool compresses or ice packs are used post treatment for comfort and to decrease swelling. It is fine to take ibuprofen/tylenol for discomfort What to expect in the days after treatment: Redness- You will notice a pink/red tone to your skin for 4-7 days. This is a normal sign that the skin is healing. Some areas can turn to a bronze-like color and last for a few weeks. This is normal. Pinpoint spotting- this is normal and the spots can range from brown to red. Do not try to scrub off, they will slough off in several days Swelling- this varies from person to person and generally resolves in 2-3 days Sunscreen- it is important to avoid sun exposure for 2 weeks post treatment as well as in between your treatments. Use sunscreen with UVA/UVB protection (either with zinc oxide or titanium dioxide) with an SPF of at least 30. Avoid direct sunlight and wear sun protective clothing (wide brimmed hat) Itching/dryness- These are common symptoms once the skin has healed initially. Flakiness and dry crusting will gradually clear. Use bland moisturizers only and/or moisturizing sunscreens. Avoid anti-aging moisturizers with AHA or (more content not included)... Normal [facility] CNOVon 08-03-2024 CNOV Office Visit ([facility] ) CELSO UP ([id number]) 1985 M Date Time Provider Department 08/03/24 10:30 AM [facility]UJU BAEZ [facility] During your visit today, we recorded the following information about you: Janet Stover LPN 08/03/2024 10:12 AM Signed Direct line to schedule [phone] or email [email or web address] Main campus: Saturday AND [place] (Uzair Martell): Saturday AND Saturday V-beam Post Care Instructions It is normal for the skin to be red and swollen after your laser treatment. Most of the redness and swelling subsides within 24 to 48 hours, but occasionally can last for up to one week. -It is fine to wear makeup on the treated area the day after treatment -Do not rub, scratch, or pick at the treated area -You may apply ice to reduce swelling and discomfort for the first 4 hours after your treatment- it is best to ice immediately after your treatment and for 10 minutes of each hour for the 4 hours after your treatment -Do not exercise for 24 hours after your treatment -Please call the office immediately if the area becomes tender, reddened or shows signs of infection. - Avoid exposure to the sun. If sun exposure is expected, apply an SPF 30 or higher sunblock to prevent pigmentation changes until the lesion is healed. Care Of The Treated Area -You can apply a gentle moisturizer or Aqpahor/Vaseline to the treated area. It is important to keep the area moist until healed. -Showers are permitted, but gently pat the area dry. Do not rub with a towel or washcloth as the area is extremely delicate while the bruising (purpura) are present. -Any discomfort you may have (usually not lasting more than a few hours, if any) can be relieved with acetaminophen (Tylenol) or ice packs. If you have any questions or concern, please call the office where you had your treatment. [phone] ([place]) or [phone] ([facility]) Juju Baez MD Dermatology AND Cosmetic Surgery [facility] Dual Instructions Pre-treatment instructions: Tell your doctor if you are taking Isotretinoin (Accutane) or have taken in the last 6 months Avoid having a suntan or using a spray ruby/brozer before treatment You cannot be treated if you are Treatment: When you arrive, a topical anesthetic will be applied to your skin for approximately 1 hour. It is best to arrive with clean skin. You may wish to bring something to help you pass the time (ie book, laptop, iPad, magazine) The length of your time in the office varies, but is usually ~90 minutes. Although there can be some areas treated that feel sensitive, the laser is generally well tolerated Post treatment: Any gentle cleanser is fine (Dove, Cetaphil, Neutrogena). Do not use any harsh, anti-aging/exfoliating cleansers, medications, or scrubs for 1 week after your treatment. You will experience a sunburn-like, burning sensation for about 1 hour after your treatment, then virtually no discomfort. Some areas can feel more sensitive to touch for slightly longer Cool compresses or ice packs are used post treatment for comfort and to decrease swelling. It is fine to take ibuprofen/tylenol for discomfort What to expect in the days after treatment: Redness- You will notice a pink/red tone to your skin for 4-7 days. This is a normal sign that the skin is healing. Some areas can turn to a bronze-like color and last for a few weeks. This is normal. Pinpoint spotting- this is normal and the spots can range from brown to red. Do not try to scrub off, they will slough off in several days Swelling- this varies from person to person and generally resolves in 2-3 days Sunscreen- it is important to avoid sun exposure for 2 weeks post treatment as well as in between your treatments. Use sunscreen with UVA/UVB protection (either with zinc oxide or titanium dioxide) with an SPF of at least 30. Avoid direct sunlight and wear sun protective clothing (wide brimmed hat) Itching/dryness- These are common symptoms once the skin has healed initially. Flakiness and dry crusting will gradually clear. Use bland moisturizers only and/or moisturizing sunscreens. Avoid anti-aging moisturizers with AHA or retinol in them Makeup AND sunscreen may be applied after 48 hours Unexpected complications and unwanted side effects such as blistering and scabbing rarely occur. Please call the office immediately if any of these develop What to expect later: More than one treatment is needed to achieve desired results. Both you and your doctor can discuss the number of treatments needed, that are spaced apart at a minimum of 4-6 weeks Over the following weeks and months there will be progressive improvement and evolution of beneficial changes associated with the appearance of healthy youthful skin If you have any questions or concern, please call the office at [phone] (more content not included)... Normal [facility] CNOVon 06-08-2024 CNOV Office Visit ([facility] ) CELSO UP ([id number]) 1985 M Date Time Provider Department 06/08/24 9:45 AM JUJU BAEZ During your visit today, we recorded the following information about you: Janet Stover LPN 06/08/2024 9:20 AM Signed Direct line to schedule [phone] or email [email or web address] Main campus: Saturday AND [place] (Uzair Martell): Saturday AND Saturday Yahir Dual Instructions Pre-treatment instructions: Tell your doctor if you are taking Isotretinoin (Accutane) or have taken in the last 6 months Avoid having a suntan or using a spray ruby/brozer before treatment You cannot be treated if you are Treatment: When you arrive, a topical anesthetic will be applied to your skin for approximately 1 hour. It is best to arrive with clean skin. You may wish to bring something to help you pass the time (ie book, laptop, iPad, magazine) The length of your time in the office varies, but is usually ~90 minutes. Although there can be some areas treated that feel sensitive, the laser is generally well tolerated Post treatment: Any gentle cleanser is fine (Dove, Cetaphil, Neutrogena). Do not use any harsh, anti-aging/exfoliating cleansers, medications, or scrubs for 1 week after your treatment. You will experience a sunburn-like, burning sensation for about 1 hour after your treatment, then virtually no discomfort. Some areas can feel more sensitive to touch for slightly longer Cool compresses or ice packs are used post treatment for comfort and to decrease swelling. It is fine to take ibuprofen/tylenol for discomfort What to expect in the days after treatment: Redness- You will notice a pink/red tone to your skin for 4-7 days. This is a normal sign that the skin is healing. Some areas can turn to a bronze-like color and last for a few weeks. This is normal. Pinpoint spotting- this is normal and the spots can range from brown to red. Do not try to scrub off, they will slough off in several days Swelling- this varies from person to person and generally resolves in 2-3 days Sunscreen- it is important to avoid sun exposure for 2 weeks post treatment as well as in between your treatments. Use sunscreen with UVA/UVB protection (either with zinc oxide or titanium dioxide) with an SPF of at least 30. Avoid direct sunlight and wear sun protective clothing (wide brimmed hat) Itching/dryness- These are common symptoms once the skin has healed initially. Flakiness and dry crusting will gradually clear. Use bland moisturizers only and/or moisturizing sunscreens. Avoid anti-aging moisturizers with AHA or retinol in them Makeup AND sunscreen may be applied after 48 hours Unexpected complications and unwanted side effects such as blistering and scabbing rarely occur. Please call the office immediately if any of these develop What to expect later: More than one treatment is needed to achieve desired results. Both you and your doctor can discuss the number of treatments needed, that are spaced apart at a minimum of 4-6 weeks Over the following weeks and months there will be progressive improvement and evolution of beneficial changes associated with the appearance of healthy youthful skin If you have any questions or concern, please call the office at [phone] Juju Baez MD Dermatology AND Cosmetic Surgery Juju Baez MD 06/08/2024 9:53 AM Signed Last lasers 02/24/24 -Nose continuing to improve, happy with results -Using Tretinoin 0.1% -vbeam out of service today, will do fraxel NONABLATIVE FRACTIONAL RESURFACING (FRAXEL DUAL) Pre-photos AND informed consent obtained prior to first treatment. Treatment: 19 Diagnosis: scar Wavelength: 1550 nm Treatment area: nose (laser benign lesions < 14) Energy (mJ): 70 Treatment settin Passes screen: 8 Total energy (kJ)0.39 Patient tolerated procedure well. Ice provided immediately after treatment for discomfort. Discussed redness, swelling, and peeling that will occur over the next several days. Patient to use liberal emollient use with Aquaphor or Vaseline. No make up for 4 days. Ice and written post care instructions provided. 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 Normal [facility] HEPACon 02-09-2019 Hep A IgM Ab Negative Normal Negative [facility] [place] Comment on above: Performed By: #### R SC, HEPAC, HIV #### [place] [address] Hep A IgM Ab Int No serological evide nce of a current Hepatitis A infection. Normal [facility] [place] Comment on above: Performed By: #### R SC, HEPAC, HIV #### [place] [address] Hep B Core IgM Ab Negative Normal Negative [facility] [place] Comment on above: Result Comment: No s erological evidence of ACUTE Hepatitis B infection. Performed By: #### R SC, HEPAC, HIV #### [place] [address] Hep B Surf Ag Negative Normal Negative [facility] [place] Comment on above: Performed By: #### R SC, HEPAC, HIV #### [place] [address] Hep C Ab Negative Normal Negative [facility] [place] Comment on above: Performed By: #### R SC, HEPAC, HIV #### [place] [address] Hep C Ab Int No serological evide nce of Hepatitis C infection, although levels of anti-HCV may be undetectable in early infection. Normal [facility] [place] Comment on above: Performed By: #### R SC, HEPAC, HIV #### [place] [id number] HIVon 02-09-2019 HIV 1/2 Ab Normal Negative [facility] [place] Comment on above: Result Comment: Nega tive Specimen is negative for anti-HIV-1 and anti-HIV-2. Performed By: #### R SC, HEPAC, HIV #### [place] [address] RPRon 02-07-2019 Reagin Ab RPR Ql (S) Non-Reactive Normal Non-Reactive [facility] [place] Comment on above: Result Comment: The RPR test is a non-treponemal assay useful as an aid in the diagnosis of primary and secondary syphilis. It converts to positive generally within 2 weeks after the appearance of a lesion. This test is also useful for monitoring response to antibiotic therapy. A positive RPR screening test will be followed by the FTA ABS test. False positive RPR tests may occur in 1) patients with underlying autoimmune disorders, 2) elderly patients, 3) , and 4) other conditions with abnormal serum globulins. Performed By: #### R SC, HEPAC, HIV #### [facility] [address] [place] [id number] Demetrius 10-23-2018 OPERATIVE REPORT Normal [facility] OR DATE OF SERVICE: PREOPERATIVE DIAGNOSIS: Cosmetic body contouring. POSTOPERATIVE DIAGNOSIS: Cosmetic body contouring. OPERATION: 1. Upper back lift. 2. Revision of prior breast reduction for gynecomastia. SURGEON: Sae Beltran MD ANESTHESIA: General. INDICATIONS: This is a gentleman who had significant weight loss. He has significant posterior back laxity and has elected at this time to proceed with a back lift. He understands the scar, location of scars, the risks, drifting of scars, seroma, hematoma, pain, unsatisfactory scar. In addition, he had previously undergone a formal reduction resection for gynecomastia. He has some residual skin and breast tissue in the lower portion and this will undergo revision. He understands the procedure. I discussed using his existing scars and possibly extending them further. He also has a little bit high position of his nipple-areolar complex, which I will try to lower slightly as well. He understands there is no guarantee of final results, asymmetry, possible need for additional surgery. He is aware of the increased risk of healing issues in weight loss patients. PROCEDURE: Before going to the operating room, the patient was marked in a standing position, confirming the amount of skin resection in the back and in the chest. He was then taken to the operating room. He was placed in the prone position after undergoing general anesthesia. Careful padding was performed. His back was then prepped and draped in a sterile fashion. Next, the marked skin excision was confirmed with magalis. Once this was confirmed, he then had tumescent solution infiltrated to help with hemostasis. Next, the superior and inferior incisions were then made, carrying them anteriorly-inferiorly and blending with his prior incision from his reduction previously. The skin was then resected above the loose areolar tissue on the back below the fascia. The left and right sides were resected. Hemostasis was then achieved throughout. Next, the tissues were closed, first with a No. 1 barbed PDS suture unidirectional, closing the fascia, catching the loose areolar tissue to help close the space, and this was done in a running fashion across the back. This was then followed by a running deep dermal 0 PDO Quill and subcuticular 3-0 Monocryl. Just at the most [facility] PATIENT NAME: CELSO UP [address] [place] MEDICAL REC #: [id number] [place] [address] ADMIT DATE: DISCHARGE DATE: OPERATIVE REPORT ATTENDING PHY: Sae Beltran MD anterior portion, magalis were placed as this would need to be carried in continuity with the anterior approach. Next, Xeroform and dressings were applied. Patient was then turned in a supine position and re-prepped and draped. Tumescent solution was then infiltrated into each breast. After waiting 10 minutes, power-assisted liposuction was performed, and I aspirated approximately 75 mL of tissue from the central breast on each side. Next, the incision that was posterior was then carried in continuity anteriorly on both sides with undermining of the breasts to allow it to be draped, and this allowed a wedge excision of breast tissue to remove the redundant skin and additional breast parenchyma bilaterally. Hemostasis was then achieved throughout. Next, a running 0 PDO Quill was placed deep, catching the chest wall itself again to close space, and this was done on both sides. This was then followed by deep dermal 0 PDO Quill and a subcuticular 3-0 Monocryl bilaterally. Upon completion, all tissues were pink and healthy. Dressings were applied. He was put in a compression vest. Counts were correct. He tolerated the procedure and was taken to the recovery room in satisfactory condition. Sae Beltran MD [id number] SSI File#: [id number] Verified/Reviewed by 10/28/18 1235 CARST [facility] PATIENT NAME: CELSO UP [address] [place] MEDICAL REC #: [id number] [place] [address] ADMIT DATE: DISCHARGE DATE: OPERATIVE REPORT ATTENDING PHY: Sae Beltran MD [facility] [place], [place] 02-27-2018 OPERATIVE REPORT [facility] OR DATE OF SERVICE: PREOPERATIVE DIAGNOSIS: Cosmetic contouring of thighs. POSTOPERATIVE DIAGNOSIS: Cosmetic contouring of thighs. OPERATION: Bilateral thighplasty, medial. SURGEON: Sae Beltran MD ANESTHESIA: General. INDICATIONS: This is a gentleman who had significant weight loss. He has predominantly excess skin with minimal actual lipodystrophy on both medial thighs. We discussed the procedure, discussed the scar coming from the groin down to the medial thigh. He understands the risks including unsatisfactory scar, drifting of scar, tissue loss, irregularities, seroma, hematoma, chronic edema, numbness, and need for additional surgery. PROCEDURE: Before going to the operating room, the patient was marked in standing position. He confirmed the plan. Once in the OR, he underwent general anesthesia. His lower extremities were then prepped and draped in sterile fashion. The markings were confirmed on both sides by tailor tacking each side with magalis to confirm the amount of skin resection, and this was done with the legs abducted and knees bent in order to make sure there was no distortion of the perineal region. Once this was confirmed, the left leg was put back and magalis were removed, and then tumescent solution was infiltrated. While this tumescent was working, attention was turned to the opposite side which had magalis removed and was injected with tumescent solution. Both sides had approximately 300 mL injected. After waiting ten minutes, power-assisted liposuction performed, both to defat a small area in the proximal posterior portion as well as to release attachments of the skin for removal of the skin. Once this was completed on both sides, attention was turned to the right side. The incisions were made and then the skin was then removed from a proximal to distal direction in an avulsion fashion. This left a nice plane to help preserve lymphatics. There was no bleeding. Next, examination of the patient showed he had extremely thin skin with very thin dermis and almost no visible fascia for closure. This was done first with fascial deep dermal running 2-0 Monoderm Quill. This was then followed by a subcuticular 4-0 Monocryl. This was followed by Dermabond. Attention was then turned to the left side. Once again, the incisions were made and, from a proximal to distal direction, the skin was removed in an avulsion fashion. Hemostasis was present. Closure was then performed as was done on the opposite side with fascial deep dermal running 2-0 Monoderm, followed by subcuticular 4-0 Monocryl and then Dermabond. Upon completion, he had nice symmetry. I removed an approximately 18 cm width of skin on both sides. Dressings were applied. He was put in a garment. He tolerated the procedure. Counts were correct. [facility] PATIENT NAME: CELSO UP [address] [place] MEDICAL REC #: [id number] [place] [address] ADMIT DATE: DISCHARGE DATE: OPERATIVE REPORT ATTENDING PHY: Sae Beltran MD Sae Beltran MD [id number] SSI File#: [id number] Verified/Reviewed by 04/07/18 0950 RUDDY [facility] PATIENT NAME: CELSO UP [address] [place] MEDICAL REC #: [id number] [place] [address] ADMIT DATE: DISCHARGE DATE: OPERATIVE REPORT ATTENDING PHY: Sae Beltran MD [facility] Vital Signs Date Time Vital Sign Value Performing Clinician Jose Li lauro 01-19-2025 20:55-0400 Body mass index (BMI) [Ratio] 28.37 kg/m2 Jaylon Gómez MD Work Phone: [facility] 01-19-2025 20:55-0400 Body temperature 99.3 [degF] Jaylon Gómez MD Work Phone: [facility] 01-19-2025 20:55-0400 Body weight 80.74 kg Jaylon Gómez MD Work Phone: [facility] 01-19-2025 20:55-0400 Diastolic blood pressure 69 mm[Hg] Jaylon Gómez MD Work Phone: [facility] 01-19-2025 20:55-0400 Heart rate 89 /min Jaylon Gómez MD Work Phone: [facility] 01-19-2025 20:55-0400 Respiratory rate 20 /min Jaylon Gómez MD Work Phone: [facility] 01-19-2025 20:55-0400 SaO2% (BldA) [Mass fraction] 98 % Jaylon Gómez MD Work Phone: [facility] 01-19-2025 20:55-0400 Systolic blood pressure 118 mm[Hg] Jaylon Gómez MD Work Phone: [facility] 12-25-2024 15:47-0400 Body mass index (BMI) [Ratio] 28.87 kg/m2 Aurelio Cloud CABIN AGENT.EXTRUSION DIE REPAIRER Work Phone: [facility] 12-25-2024 15:47-0400 Body temperature 97.3 [degF] Aurelio Cloud CABIN AGENT.EXTRUSION DIE REPAIRER Work Phone: [facility] 12-25-2024 15:47-0400 Body weight 82.15 kg Aurelio Cloud CABIN AGENT.EXTRUSION DIE REPAIRER Work Phone: [facility] 12-25-2024 15:47-0400 Diastolic blood pressure 75 mm[Hg] Aurelio Cloud CABIN AGENT.EXTRUSION DIE REPAIRER Work Phone: [facility] 12-25-2024 15:47-0400 Heart rate 93 /min Aurelio Cloud CABIN AGENT.EXTRUSION DIE REPAIRER Work Phone: [facility] 12-25-2024 15:47-0400 Respiratory rate 16 /min Aurelio Cloud CABIN AGENT.EXTRUSION DIE REPAIRER Work Phone: [facility] 12-25-2024 15:47-0400 SaO2% (BldA) [Mass fraction] 97 % Aureliohang Cloud CABIN AGENT.EXTRUSION DIE REPAIRER Work Phone: [facility] 12-25-2024 15:47-0400 Systolic blood pressure 119 mm[Hg] Aurelio Cloud CABIN AGENT.EXTRUSION DIE REPAIRER Work Phone: [facility] Encounters Encounter Date Encounter Type Care Provider Facility Start: 03-21-2025 End: 03-21-2025 ambulatory JAYLON GÓMEZ Facility:[id number] Start: 03-04-2025 End: 03-04-2025 ambulatory Bibiana Castillo Facility:[facility] Start: 03-04-2025 End: 03-04-2025 ambulatory Bibiana Castillo Facility:[facility] Start: 03-01-2025 End: 03-01-2025 ambulatory JUJU BAEZ Facility:[facility] Start: 02-11-2025 End: 02-11-2025 ambulatory MARY ESTRADA Facility:[id number] Start: 01-19-2025 End: 01-19-2025 Patient encounter procedure Jaylon Gómez MD Work Phone: [facility] Comment on above: Acute dermatitis (Pr imary Dx) Start: 01-19-2025 End: 01-19-2025 ambulatory SELF Facility:[id number] Start: 12-25-2024 End: 12-25-2024 Patient encounter procedure Aurelio Cloud APRN.CNP Work Phone: [facility] Comment on above: Rash (Primary Dx) Start: 12-25-2024 End: 12-25-2024 ambulatory AURELIO CLOUD Facility:[id number] Start: 11-09-2024 End: 11-09-2024 Patient encounter procedure Juju Baez MD Work Phone: Dermatology Comment on above: 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 Start: 08-03-2024 End: 08-03-2024 ambulatory [facility] Facility:[facility] Start: 08-03-2024 End: 08-03-2024 Patient encounter procedure Juju Baez MD Work Phone: Dermatology Comment on above: Encounter for cosmet ic procedure (Primary Dx) Start: 06-08-2024 End: 06-08-2024 Patient encounter procedure Juju Baez MD Work Phone: Dermatology Comment on above: 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); Rhinophyma; Rosacea Start: 06-08-2024 End: 06-08-2024 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); Rhinophyma Start: 12-16-2023 End: 12-16-2023 Patient encounter procedure Juju Baez MD Work Phone: Dermatology Comment on above: 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); Rosacea Start: 10-21-2023 End: 10-21-2023 Patient encounter procedure Juju Baez MD Work Phone: Dermatology Comment on above: 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); Rosacea Start: 06-24-2023 End: 06-24-2023 Patient encounter procedure Juju Baez MD Work Phone: Dermatology Comment on above: 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); Rosacea; Achrochordon Start: 01-07-2023 End: 01-07-2023 Patient encounter procedure Juju Baez MD Work Phone: Dermatology Comment on above: 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); Rosacea Start: 11-05-2022 End: 11-05-2022 Patient encounter procedure Juju Baez MD Work Phone: Dermatology Comment on above: 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); Rosacea Start: 06-12-2022 End: 06-12-2022 Patient encounter procedure Juju Baez MD Work Phone: Dermatology Comment on above: 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); Rosacea Start: 03-27-2022 End: 03-27-2022 Patient encounter procedure Juju Baez MD Work Phone: Dermatology Comment on above: 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); Rhinophyma Start: 01-26-2022 End: 01-26-2022 Patient encounter procedure Juju Baez MD Work Phone: Dermatology Comment on above: Encounter for cosmet ic procedure (Primary Dx) Plan of Treatment Date Care Activity Detail Author Start: 04-29-2025 End: 04-29-2025 Patient encounter procedure 04/29/2025 8:30 AM EST Office Visit Dermatology [address] [address] Juju Baez MD [address] [place] [address] [facility] Comment on above: [facility] Start: 03-01-2025 End: 03-01-2025 Patient encounter procedure 03/01/2025 8:45 AM EDT Office Visit Dermatology [address] [address] Juju Baez MD [address] [place] [address] [facility] Comment on above: [facility] Start: 01-11-2025 Influenza vaccination [facility] Start: 01-04-2025 End: 01-04-2025 Patient encounter procedure 01/04/2025 10:30 AM EDT Office Visit Dermatology [address] [address] Juju Baez MD [address] [place] [address] [facility] Comment on above: [facility] Start: 11-09-2024 End: 11-09-2024 Patient encounter procedure 11/09/2024 9:30 AM EDT Office Visit Dermatology [address] [address] Juju Baez MD [address] [place] [address] [facility] Comment on above: [facility] Start: 08-03-2024 End: 08-03-2024 Patient encounter procedure 08/03/2024 10:30 AM EDT Office Visit Dermatology [address] [address] Juju Baez MD [address] [place] [address] [facility] Comment on above: [facility] Start: 06-08-2024 End: 06-08-2024 Patient encounter procedure 06/08/2024 9:45 AM EST Office Visit Dermatology [address] [place] [id number] Juju Baez MD [address] [place] [address] [facility] Comment on above: [facility] Start: 02-24-2024 End: 02-24-2024 Patient encounter procedure 02/24/2024 2:30 PM EDT Office Visit Dermatology [address] [address] Juju Baez MD [address] [place] [address] [facility] Comment on above: [facility] Start: 01-12-2024 Covid-19 Vaccine ( season) Covid-19 Vaccine ( season) [facility] Start: 01-12-2024 Influenza vaccination C [facility] Start: 12-16-2023 End: 12-16-2023 Patient encounter procedure 12/16/2023 3:00 PM EDT Office Visit Dermatology [address] [address] Juju Baez MD [address] [place] [address] [facility] Comment on above: [facility] Start: 05-13-2023 Behavioral Health Screening Behavioral Health Screening [facility] Start: 05-13-2023 Depression Assessment Depression Ass essment [facility] Start: 01-11-2023 Covid-19 Vaccine ( season) Covid-19 Vaccine ( season) [facility] Start: 01-11-[address] [facility] Start: 05-13-2022 [facility] Start: 01-11-2022 Influenza vaccination INFLUENZA (#1) [facility] Start: 05-13-2021 DEPRESSION ASSESSMENT [facility] Start: 03-31-2020 Urine microalbumin profile DTa P,Tdap,Td Vaccine (2 - Td or Tdap) [facility] Start: 09-15-2018 Lipid panel Lipid Screening [facility] Start: 09-15-2018 LIPID SCREEN LIPID SCREEN [facility] Start: 09-15-2010 HPV Vaccine (1 - 3-d ose SCDM series) HPV Vaccine (1 - 3-dose SCDM series) [facility] Start: 09-15-2002 Hepatitis B Vaccine (1 of 3 - 19+ 3-dose series) Hepatitis B Vaccine (1 of 3 - 19+ 3-dose series) [facility] Start: 09-15-2002 Urine microalbumin profile DTAP,TDAP ,TD (1 - Tdap) [facility] Start: 09-15-2001 Anxiety Screening Anxiety Screening [facility] Start: 09-15-2001 Depression Screening Depression Scre [facility] Start: 09-15-2001 HEPATITIS C SCREENING HEPATITIS C [facility] Start: 09-15-2001 Hepatitis C screening Hepatitis C [facility] Start: 09-15-2001 HIV SCREEN[address] HIV SCRE[facility]ING [facility] Start: 09-15-2001 HIV screening HIV Screening [facility] Start: 1995 Adult depression scr [facility] assessment DEPRESSION SCREENING [facility] Start: 03-18-1984 COVID-19 VACCINE (#1) COVID-19 VACCI NE (#1) [facility] Start: 1983 HEPATITIS B (1 of 3 - 3-dose series) HEPATITIS B (1 of 3 - 3-dose series) [facility] Start: 1983 Hepatitis B Vaccine (1 of 3 - 3-dose series) Hepatitis B Vaccine (1 of 3 - [facility]dose [facility]) [facility] Immunizations Immunization Date Immunization Notes Care Provider Aliya ponce 02-06-2019 influenza virus vacc ine, unspecified formulation Juju Baez MD Work Phone: [facility] Payers Date Payer Category Payer Self-pay 2021 Private Health Insurance [employer] PPO [id number] 2021 Unknown [id number] 2021 Unknown [id number] Unknown [id number] Unknown [id number] Social History Date Type Detail Facility Start: 11-11-2018 End: 01-19-2025 Tobacco smoking status NHIS Never smoked tobacco [facility] Start: 11-11-2018 End: 01-19-2025 Tobacco use and exposure Smokeless tobacco non-user [facility] Start: 1985 Sex Assigned At Male C [facility] Start: 01-16-2022 End: 03-27-2022 Exposure to SARS-CoV-2 (event) Not sure [facility] Start: 02-19-2020 End: 02-24-2024 History of Social function [facility] Work Phone: Start: 02-19-2020 End: 02-24-2024 Tobacco use panel [facility] Work Phone: Start: 04-13-2012 National Score (1-10 0), lower number is lower risk Not on file [facility] Work Phone: Start: 07-25-2018 Gender identity Identifies as male gender (finding) [facility] Start: 07-25-2018 Sexual orientation Homosexual (findi ng) [facility] Clinical Notes 01-19-2022 to 03-21-2025 Jaylon Gómez MD - 01/19/2025 9:06 PM Aurelio Krause APRN.CNP - 12/25/2024 4:12 PM Micha Dowell MA - 12/25/2024 3:45 PM EDTPatient InstructionsPatient InstructionsPatient Instructions Note Date & Type Note Facility 03-21-2025 Note HNO ID: [id number] Author: JAYLON GÓMEZ MD Service: ? Author Type: Physician Type: Progress Notes Filed: 03/21/2025 20:50 Note Text: [facility] Subjective Celso Up is a 39 year old male. Patient presents with: Refill Request: Needs refill on tetracycline 500 mg , states he doesn't have enough for dosage 39-year-old patient presented here needs prescribed tetracycline 500 mg 4 times daily, patient was prescribed for 2 weeks but he is not short for a day and a half of the prescription. Patient is being treated for H. pylori. No other complaint. Review of Systems All other systems reviewed and are negative. Objective BP 118/75 (BP Position: Sitting) Pulse 71 Temp 36.4 ?C (97.5 ?F) Resp 16 Wt 81.6 kg (180 lb) SpO2 100% BMI 28.69 kg/m? Physical Exam Vitals and nursing note reviewed. Constitutional: Appearance: Normal appearance. HENT: Head: Normocephalic. Nose: Nose normal. Mouth/Throat: Mouth: Mucous membranes are moist. Cardiovascular: Rate and Rhythm: Normal rate and regular rhythm. Pulses: Normal pulses. Heart sounds: Normal heart sounds. Pulmonary: Effort: Pulmonary effort is normal. Breath sounds: Normal breath sounds. Neurological: Mental Status: He is alert. {ASSESSMENT/PLAN: 1. H. pylori infection - ICD9: 041.86, ICD10: A04.8 I gave the patient refill for 6 more dose will have him follow-up with his PCP treatment plans to discuss. Jaylon Gómez MD MDM Procedures [facility] 03-01-2025 Note HNO ID: [id number] Author: JANET STOVER LPN Service: ? Author Type: Licensed Nurse Type: Progress Notes Filed: 03/01/2025 08:57 Note Text: -Cautery, low, blunt tip at 1.0 to 1 lesion on left cheek sebaceous hyperplasia Risks, benefits, alternatives and personnel discussed with patient who consents to proceed. Vaseline applied after Last lasers laser benign lesions > 15 Currently on Prednisone 5 mg and Zyrtec Still noticing improvement LASER SURGERY PROCEDURAL TIME OUT: Time out verification includes: Audible time-out documented: Yes. Time: 8:33 AM Two Patient Identifiers Correct side and site marking Accurate Consent Agreement on the procedure to be done Correct Positioning Imaging and Test Results Properly Labeled and Displayed if applicable Safety Precautions Based on Patient History or Medication ANESTHETIC: 23% lidocaine / 7% tetracaine ointment x 40 min at home DX: rhinophyma / telengiectasia LASER PROCEDURE: laser benign lesions > 15 PROTECTIVE EYEWEAR APPLIED TO PATIENT'S EYES: goggles. ALL PERSONNEL IN THE ROOM ARE WEARING PROTECTIVE GOGGLES SPECIFIC TO THE LASER WAVELENGTH FOR THIS TREATMENT. TREATMENT #: 28 LASER: V BEAM SPOT SIZE:7mm; ENERGY FLUENCE: 9J/cm2; MODE (TIME): 6 msec; SPRAY DELAY: 30/20;NUMBER OF PULSES:58 - 2 passes to nose COMMENTS: Patient tolerated procedure well. and Post care instructions provided, understanding verbalized. Sign Out Discussion: Completed Post op instructions given / with verbal understanding Skin Care after Laser Treatment. NONABLATIVE FRACTIONAL RESURFACING (FRAXEL DUAL) Pre-photos AND informed consent obtained prior to first treatment. Treatment: 21 Diagnosis: scar Wavelength: 1550 nm Treatment area: nose Energy (mJ): 70 Treatment settin Passes screen: 8 Total energy (kJ) 0.35 Patient tolerated procedure well. Ice provided immediately after treatment for discomfort. Discussed redness, swelling, and peeling that will occur over the next several days. Patient to use liberal emollient use with Aquaphor or Vaseline. No make up for 4 days. Ice and written post care instructions provided. Charge Code: Bill insurance Return to clinic as scheduled Juju Baez MD March 01, 2025 [facility] 01-19-2025 Note HNO ID: [id number] Author: JAYLON GÓMEZ MD Service: ? Author Type: Physician Type: Progress Notes Filed: 01/19/2025 21:08 Note Text: [facility] Subjective Celso Up is a 39 year old male. Patient presents with: Skin Rashes: Entered by patient Rash: Rash all over his body that started back in june . Stated that he has has syphilis biopsy done that was negative. 39-year-old patient presented here as a rash that comes and goes. Other than the itching and irritation no other complaint. Patient states that he used some antifungal and the rash cleared up but when he stopped using the antifungal the rash comes back. He talked to his sap hana developer they told him they do not believe his fungal. Patient is here for second opinion no other complaint. Review of Systems Skin: Positive for rash. All other systems reviewed and are negative. Objective BP 118/69 Pulse 89 Temp 37.4 ?C (99.3 ?F) (Temporal) Resp 20 Wt 80.7 kg (178 lb) SpO2 98% BMI 28.37 kg/m? Physical Exam Vitals and nursing note reviewed. Constitutional: Appearance: Normal appearance. Cardiovascular: Rate and Rhythm: Normal rate and regular rhythm. Pulses: Normal pulses. Heart sounds: Normal heart sounds. Pulmonary: Effort: Pulmonary effort is normal. Breath sounds: Normal breath sounds. Abdominal: Palpations: Abdomen is soft. Skin: Comments: Skin is erythematous and swollen there is a slightly raised lesion, there is general distribution. Neurological: Mental Status: He is alert. {ASSESSMENT/PLAN: 1. Acute dermatitis - ICD9: 692.9, ICD10: L30.9 I discussed with the patient and we will plan on a short course of prednisone. And a short course of griseofulvin will have him follow-up with his sap hana developer treatments and plans to discuss. Jaylon Gómez MD [facility] 01-19-2025 History of Presen t illness Narrative [facility] Up is a 39 year old male. Patient presents with: Skin Rashes: Entered by patient Rash: Rash all over his body that started back in june . Stated that he has has syphilis biopsy done that was negative. 39-year-old patient presented here as a rash that comes and goes. Other than the itching and irritation no other complaint. Patient states that he used some antifungal and the rash cleared up but when he stopped using the antifungal the rash comes back. He talked to his sap hana developer they told him they do not believe his fungal. Patient is here for second opinion no other complaint. Review of Systems Skin: Positive for rash. All other systems reviewed and are negative. Objective BP 118/69 Pulse 89 Temp 37.4 C (99.3 F) (Temporal) Resp 20 Wt 80.7 kg (178 lb) SpO2 98% BMI 28.37 kg/m Physical Exam Vitals and nursing note reviewed. Constitutional: Appearance: Normal appearance. Cardiovascular: Rate and Rhythm: Normal rate and regular rhythm. Pulses: Normal pulses. Heart sounds: Normal heart sounds. Pulmonary: Effort: Pulmonary effort is normal. Breath sounds: Normal breath sounds. Abdominal: Palpations: Abdomen is soft. Skin: Comments: Skin is erythematous and swollen there is a slightly raised lesion, there is general distribution. Neurological: Mental Status: He is alert. {ASSESSMENT/PLAN: 1. Acute dermatitis - ICD9: 692.9, ICD10: L30.9 I discussed with the patient and we will plan on a short course of prednisone. And a short course of griseofulvin will have him follow-up with his sap hana developer treatments and plans to discuss. Jaylon Gómez MD [facility] Procedures documented in this encounter [facility] 12-25-2024 Note HNO ID: [id number] Author: AURELIO CLOUD APRN.[employer] Service: ? Author Type: Nurse Practitioner Type: Progress Notes Filed: 12/25/2024 16:14 Note Text: [facility] Up is a 39 year old male. Patient presents with: Skin Rashes: Entered by patient HPI Celso Nico Up is a 39-year-old male presenting with a rash on the left forearm. Celso reports a rash on the left forearm that began as a small lesion resembling a fernandes on Saturday. The lesion has since expanded and spread within the same area, becoming pruritic. He notes that the rash is unresponsive to antifungal cream, which he had been using for a previous case of tinea cruris that has since resolved. He also tried hydrocortisone cream without significant improvement. The rash appears calmer in the morning but is exacerbated by sun exposure. He denies pain, fever, or chills. Celso is uncertain if the initial lesion was a bite and does not recall any specific incident that could have caused it. Review of Systems Constitutional: (-) fever, (-) chills Skin: (+) left forearm rash, (+) pruritus, (-) pain, (-) burning sensation Objective BP 119/75 (BP Site: Right Arm, BP Cuff Size: Large Adult) Pulse 93 Temp 36.3 ?C (97.3 ?F) Resp 16 Wt 82.2 kg (181 lb 1.7 oz) SpO2 97% BMI 28.87 kg/m? Physical Exam Vitals and nursing note reviewed. Constitutional: General: He is not in acute distress. Appearance: Normal appearance. He is not ill-appearing, toxic-appearing or diaphoretic. HENT: Head: Normocephalic and atraumatic. Eyes: Extraocular Movements: Extraocular movements intact. Conjunctiva/sclera: Conjunctivae normal. Pulmonary: Effort: Pulmonary effort is normal. No respiratory distress. Musculoskeletal: General: Normal range of motion. Cervical back: Normal range of motion and neck supple. Skin: General: Skin is warm and dry. Comments: 1 cm x 2 cm erythematous, pruritic, localized rash. No current signs or symptoms of secondary bacterial infection. Neurological: General: No focal deficit present. Mental Status: He is alert and oriented to person, place, and time. Psychiatric: Mood and Affect: Mood normal. Behavior: Behavior normal. ASSESSMENT/PLAN: 1. Rash - ICD9: 782.1, ICD10: R21 - TRIAMCINOLONE ACETONIDE 0.1 % TOPICAL OINTMENT -Localized to the left forearm, measuring approximately 1 cm by 2 cm. Pruritic, non-painful, and not responsive to antifungal cream or hydrocortisone 2.5%. No associated fever or chills. Differential includes contact dermatitis or insect bite reaction. - Initiated Kenalog ointment, a high-potency topical corticosteroid, to be applied twice daily. - Prescription sent to [facility] on [address]. - Advised patient to monitor the rash and cover it to prevent sun exposure, which seems to exacerbate the condition. - If the rash spreads or pruritus persists, patient to return for evaluation and potential initiation of oral corticosteroids. Recording using [employer] software for draft documentation of the visit was discussed with the patient/authorized merchandising representative; all questions welcomed and answered. Patient/authorized merchandising representative agreed to proceed Differential Diagnoses - rash is more likely for the following reason(s): suggested by HANDP - dermatitis is more likely for the following reason(s): suggested by HANDP - cellulitis is less likely for the following reason(s): HANDP not suggestive Disposition The patient was discharged. Procedures [facility] 12-25-2024 History of Presen t illness Narrative Images from the original note were not included. [facility] Subjective Celso Up is a 39 year old male. Patient presents with: Skin Rashes: Entered by patient HPI Celso Up is a 39-year-old male presenting with a rash on the left forearm. Celso reports a rash on the left forearm that began as a small lesion resembling a fernandes on Saturday. The lesion has since expanded and spread within the same area, becoming pruritic. He notes that the rash is unresponsive to antifungal cream, which he had been using for a previous case of tinea cruris that has since resolved. He also tried hydrocortisone cream without significant improvement. The rash appears calmer in the morning but is exacerbated by sun exposure. He denies pain, fever, or chills. Celso is uncertain if the initial lesion was a bite and does not recall any specific incident that could have caused it. Review of Systems Constitutional: (-) fever, (-) chills Skin: (+) left forearm rash, (+) pruritus, (-) pain, (-) burning sensation Objective BP 119/75 (BP Site: Right Arm, BP Cuff Size: Large Adult) Pulse 93 Temp 36.3 C (97.3 F) Resp 16 Wt 82.2 kg (181 lb 1.7 oz) SpO2 97% BMI 28.87 kg/m Physical Exam Vitals and nursing note reviewed. Constitutional: General: He is not in acute distress. Appearance: Normal appearance. He is not ill-appearing, toxic-appearing or diaphoretic. HENT: Head: Normocephalic and atraumatic. Eyes: Extraocular Movements: Extraocular movements intact. Conjunctiva/sclera: Conjunctivae normal. Pulmonary: Effort: Pulmonary effort is normal. No respiratory distress. Musculoskeletal: General: Normal range of motion. Cervical back: Normal range of motion and neck supple. Skin: General: Skin is warm and dry. Comments: 1 cm x 2 cm erythematous, pruritic, localized rash. No current signs or symptoms of secondary bacterial infection. Neurological: General: No focal deficit present. Mental Status: He is alert and oriented to person, place, and time. Psychiatric: Mood and Affect: Mood normal. Behavior: Behavior normal. ASSESSMENT/PLAN: 1. Rash - ICD9: 782.1, ICD10: R21 - TRIAMCINOLONE ACETONIDE 0.1 % TOPICAL OINTMENT -Localized to the left forearm, measuring approximately 1 cm by 2 cm. Pruritic, non-painful, and not responsive to antifungal cream or hydrocortisone 2.5%. No associated fever or chills. Differential includes contact dermatitis or insect bite reaction. - Initiated Kenalog ointment, a high-potency topical corticosteroid, to be applied twice daily. - Prescription sent to [facility] on [address] - Advised patient to monitor the rash and cover it to prevent sun exposure, which seems to exacerbate the condition. - If the rash spreads or pruritus persists, patient to return for evaluation and potential initiation of oral corticosteroids. Recording using [employer] software for draft documentation of the visit was discussed with the patient/authorized merchandising representative; all questions welcomed and answered. Patient/authorized merchandising representative agreed to proceed Differential Diagnoses - rash is more likely for the following reason(s): suggested by H&P - dermatitis is more likely for the following reason(s): suggested by H&P - cellulitis is less likely for the following reason(s): H&P not suggestive Disposition The patient was discharged. Procedures Pt here today for rash on left forearm since Saturday. Pt states it itches and wei. NALDO Trammell December 25, 2024 3:46 PM documented in this encounter [facility] 12-25-2024 Instructions Aurelio Cloud APRN.[facility] - 12/25/2024 3:57 PM EDT Contact Dermatitis You have been diagnosed with contact dermatitis. Contact dermatitis is a skin irritation. It is caused by contact with something. Sometimes the rash is from an allergic reaction. Sometimes it is from a simple chemical irritation. Some symptoms are itching and redness of the skin. In bad cases, there may be blistering. This condition is not often dangerous. However, it can be frustrating. Contact dermatitis can be caused, for example, by detergents, soaps and shampoos. It can be caused by nickel (found in jewelry) or poison lalita/oak. Other possible causes are wool, clothing starch, cleaning fluids, etc. Often, the item that caused the rash cannot be identified. If you have contact dermatitis often, see a sap hana developer (skin doctor) or ore roaster. There, you will have tests to find out the cause. If you are polly enough to find out the cause, you can avoid it in the future. General treatment for this condition includes: Antihistamines (anti-itch medicines). Some antihistamines can limit itching. This includes diphenhydramine (Benadryl ): 1-2 (25 mg) tablets every 6 hours). You can get this medicine without a prescription. It also includes prescription strength hydroxyzine (Atarax ). Antihistamines can make you drowsy. Therefore, use them with caution. Avoid them if you must be alert (on the job or when driving, for example). Steroid (cortisone) cream. Apply steroid creams sparingly (in small amounts) 2 times each day to the affected areas. These creams can be used until the skin irritation is gone and the skin feels normal to the touch. Put steroid creams on clean, damp skin. Then cover with a thick layer of moisturizer. As a general rule, do not use steroid cream on the face for more than 7 days. Do not use on other areas of the body for more than 14 days. Follow your doctor's instructions if he or she says that longer use is okay. Moisturizers. Put on skin moisturizers many times a day. 5 times or more is a good amount. Good moisturizers seal in water and moisture to the skin. Use them directly after (on top of) steroid creams. Also use them (alone) many more times to keep the skin from looking and feeling dry. Use greasy, stiff moisturizers that are too thick to pour. Eucerin cream (not lotion) is an example of a good brand. It can be bought over the counter (without a prescription). Vaseline is a less expensive, good skin moisturizer. Food shortening (Crisco ) is another example of such a moisturizer. YOU SHOULD SEEK MEDICAL ATTENTION IMMEDIATELY, EITHER HERE OR AT THE NEAREST EMERGENCY DEPARTMENT, IF ANY OF THE FOLLOWING OCCURS: Symptoms get worse even with treatment. You get signs of infection at the affected areas. Signs include redness, pus, pain, swelling or fever (temperature higher than 100.4 F / 38 C). documented in this encounter [facility] 12-25-2024 Note HNO ID: [id number] Author: MICHA SANZ MA Service: ? Author Type: Inspector Conveyor Line Type: Progress Notes Filed: 12/25/2024 16:14 Note Text: Pt here today for rash on left forearm since Saturday. Pt states it itches and wei. NALDO Trammell December 25, 2024 3:46 PM [facility] 11-09-2024 History of Presen t illness Narrative -Cautery, low, blunt tip at 1.0 to 1 lesion on left cheek sebaceous hyperplasia Risks, benefits, alternatives and personnel discussed with patient who consents to proceed. Vaseline applied after Last lasers laser benign lesions > 15 LASER SURGERY PROCEDURAL TIME OUT: Time out verification includes: Audible time-out documented: Yes. Time: 9:56 AM Two Patient Identifiers Correct side and site marking Accurate Consent Agreement on the procedure to be done Correct Positioning Imaging and Test Results Properly Labeled and Displayed if applicable Safety Precautions Based on Patient History or Medication ANESTHETIC: 23% lidocaine / 7% tetracaine ointment x 50 min at home DX: rhinophyma / telengiectasia LASER PROCEDURE: laser benign lesions > 15 PROTECTIVE EYEWEAR APPLIED TO PATIENT'S EYES: goggles. ALL PERSONNEL IN THE ROOM ARE WEARING PROTECTIVE GOGGLES SPECIFIC TO THE LASER WAVELENGTH FOR THIS TREATMENT. TREATMENT #: 27 LASER: V BEAM SPOT SIZE:7mm; ENERGY FLUENCE: 9J/cm2; MODE (TIME): 6 msec; SPRAY DELAY: 30/20;NUMBER OF PULSES:49 - 2 passes to nose COMMENTS: Patient tolerated procedure well. and Post care instructions provided, understanding verbalized. Sign Out Discussion: Completed Post op instructions given / with verbal understanding Skin Care after Laser Treatment. NONABLATIVE FRACTIONAL RESURFACING (FRAXEL DUAL) Pre-photos & informed consent obtained prior to first treatment. Treatment: 20 Diagnosis: scar Wavelength: 1550 nm Treatment area: nose Energy (mJ): 70 Treatment settin Passes screen: 8 Total energy (kJ) 0.35 Patient tolerated procedure well. Ice provided immediately after treatment for discomfort. Discussed redness, swelling, and peeling that will occur over the next several days. Patient to use liberal emollient use with Aquaphor or Vaseline. No make up for 4 days. Ice and written post care instructions provided. Charge Code: Bill insurance Return to clinic as scheduled Juju Baez MD November 09, 2024 documented in this encounter [facility] 11-09-2024 Note HNO ID: [id number] Author: JUJU BAEZ MD Service: ? Author Type: Physician Type: Progress Notes Filed: 11/09/2024 10:04 Note Text: -Cautery, low, blunt tip at 1.0 to 1 lesion on left cheek sebaceous hyperplasia Risks, benefits, alternatives and personnel discussed with patient who consents to proceed. Vaseline applied after Last lasers laser benign lesions > 15 LASER SURGERY PROCEDURAL TIME OUT: Time out verification includes: Audible time-out documented: Yes. Time: 9:56 AM Two Patient Identifiers Correct side and site marking Accurate Consent Agreement on the procedure to be done Correct Positioning Imaging and Test Results Properly Labeled and Displayed if applicable Safety Precautions Based on Patient History or Medication ANESTHETIC: 23% lidocaine / 7% tetracaine ointment x 50 min at home DX: rhinophyma / telengiectasia LASER PROCEDURE: laser benign lesions > 15 PROTECTIVE EYEWEAR APPLIED TO PATIENT'S EYES: goggles. ALL PERSONNEL IN THE ROOM ARE WEARING PROTECTIVE GOGGLES SPECIFIC TO THE LASER WAVELENGTH FOR THIS TREATMENT. TREATMENT #: 27 LASER: V BEAM SPOT SIZE:7mm; ENERGY FLUENCE: 9J/cm2; MODE (TIME): 6 msec; SPRAY DELAY: 30/20;NUMBER OF PULSES:49 - 2 passes to nose COMMENTS: Patient tolerated procedure well. and Post care instructions provided, understanding verbalized. Sign Out Discussion: Completed Post op instructions given / with verbal understanding Skin Care after Laser Treatment. NONABLATIVE FRACTIONAL RESURFACING (FRAXEL DUAL) Pre-photos AND informed consent obtained prior to first treatment. Treatment: 20 Diagnosis: scar Wavelength: 1550 nm Treatment area: nose Energy (mJ): 70 Treatment settin Passes screen: 8 Total energy (kJ) 0.35 Patient tolerated procedure well. Ice provided immediately after treatment for discomfort. Discussed redness, swelling, and peeling that will occur over the next several days. Patient to use liberal emollient use with Aquaphor or Vaseline. No make up for 4 days. Ice and written post care instructions provided. Charge Code: Bill insurance Return to clinic as scheduled Juju Baez MD November 09, 2024 [facility] 10-29-2024 Instructions Janet Stover LPN - 10/29/2024 10:32 AM EDT Direct line to schedule [phone] or email Main campus: Saturday & Rebeka (Uzair Martell): Saturday & Saturday CAUTERY POST CARE INSTRUCTIONS -Do not apply makeup to treated areas for 24 hours -Apply vaseline or aquaphor twice a day until all lesions are healed -It is normal for your skin to take up to 7 days to look and feel normal (there will be small crusted, scabbed areas immediately after treatment and can last up to 7 days) -Immediately after your procedure it is safe to use gentle skin cleansers (Dove, Cetaphil) and gentle facial moisturizers -Most people need a series of treatments (at least 2) to notice significant improvement. *DO NOT USE ANY GLYCOLIC ACIDS, RETINOIDS, OR ANTI-AGING/ ANTI-ACNE CARE PRODUCTS UNTIL AT LEAST 7 DAYS AFTER YOUR TREATMENT. V-beam Post Care Instructions It is normal for the skin to be red and swollen after your laser treatment. Most of the redness and swelling subsides within 24 to 48 hours, but occasionally can last for up to one week. -It is fine to wear makeup on the treated area the day after treatment -Do not rub, scratch, or pick at the treated area -You may apply ice to reduce swelling and discomfort for the first 4 hours after your treatment- it is best to ice immediately after your treatment and for 10 minutes of each hour for the 4 hours after your treatment -Do not exercise for 24 hours after your treatment -Please call the office immediately if the area becomes tender, reddened or shows signs of infection. - Avoid exposure to the sun. If sun exposure is expected, apply an SPF 30 or higher sunblock to prevent pigmentation changes until the lesion is healed. Care Of The Treated Area -You can apply a gentle moisturizer or Aqpahor/Vaseline to the treated area. It is important to keep the area moist until healed. -Showers are permitted, but gently pat the area dry. Do not rub with a towel or washcloth as the area is extremely delicate while the bruising (purpura) are present. -Any discomfort you may have (usually not lasting more than a few hours, if any) can be relieved with acetaminophen (Tylenol) or ice packs. If you have any questions or concern, please call the office where you had your treatment. [phone] ([place]) or [phone] ([facility]) Juju Baez MD Dermatology & Cosmetic Surgery [facility] Instructions Pre-treatment instructions: Tell your doctor if you are taking Isotretinoin (Accutane) or have taken in the last 6 months Avoid having a suntan or using a spray ruby/brozer before treatment You cannot be treated if you are Treatment: When you arrive, a topical anesthetic will be applied to your skin for approximately 1 hour. It is best to arrive with clean skin. You may wish to bring something to help you pass the time (ie book, laptop, iPad, magazine) The length of your time in the office varies, but is usually ~90 minutes. Although there can be some areas treated that feel sensitive, the laser is generally well tolerated Post treatment: Any gentle cleanser is fine (Dove, Cetaphil, Neutrogena). Do not use any harsh, anti-aging/exfoliating cleansers, medications, or scrubs for 1 week after your treatment. You will experience a sunburn-like, burning sensation for about 1 hour after your treatment, then virtually no discomfort. Some areas can feel more sensitive to touch for slightly longer Cool compresses or ice packs are used post treatment for comfort and to decrease swelling. It is fine to take ibuprofen/tylenol for discomfort What to expect in the days after treatment: Redness- You will notice a pink/red tone to your skin for 4-7 days. This is a normal sign that the skin is healing. Some areas can turn to a bronze-like color and last for a few weeks. This is normal. Pinpoint spotting- this is normal and the spots can range from brown to red. Do not try to scrub off, they will slough off in several days Swelling- this varies from person to person and generally resolves in 2-3 days Sunscreen- it is important to avoid sun exposure for 2 weeks post treatment as well as in between your treatments. Use sunscreen with UVA/UVB protection (either with zinc oxide or titanium dioxide) with an SPF of at least 30. Avoid direct sunlight and wear sun protective clothing (wide brimmed hat) Itching/dryness- These are common symptoms once the skin has healed initially. Flakiness and dry crusting will gradually clear. Use bland moisturizers only and/or moisturizing sunscreens. Avoid anti-aging moisturizers with AHA or retinol in them Makeup & sunscreen may be applied after 48 hours Unexpected complications and unwanted side effects such as blistering and scabbing rarely occur. Please call the office immediately if any of these develop What to expect later: More than one treatment is needed to achieve desired results. Both you and your doctor can discuss the number of treatments needed, that are spaced apart at a minimum of 4-6 weeks Over the following weeks and months there will be progressive improvement and evolution of beneficial changes associated with the appearance of healthy youthful skin If you have any questions or concern, please call the office at [phone] Juju Baez MD Dermatology & Cosmetic Surgery documented in this encounter [facility] 08-03-2024 History of Presen t illness Narrative Last lasers June 08, 2024 -Nose continuing to improve, happy with results -Using Tretinoin 0.1% Feels like it looked better after last treatment LASER SURGERY PROCEDURAL TIME OUT: Time out verification includes: Audible time-out documented: Yes. Time: 10:12 AM Two Patient Identifiers Correct side and site marking Accurate Consent Agreement on the procedure to be done Correct Positioning Imaging and Test Results Properly Labeled and Displayed if applicable Safety Precautions Based on Patient History or Medication ANESTHETIC: 23% lidocaine / 7% tetracaine ointment x 50 min at home DX: rhinophyma / telengiectasia LASER PROCEDURE: laser benign lesions > 15 PROTECTIVE EYEWEAR APPLIED TO PATIENT'S EYES: goggles. ALL PERSONNEL IN THE ROOM ARE WEARING PROTECTIVE GOGGLES SPECIFIC TO THE LASER WAVELENGTH FOR THIS TREATMENT. TREATMENT #: 27 LASER: V BEAM SPOT SIZE:10mm; ENERGY FLUENCE: 8J/cm2; MODE (TIME): 6 msec; SPRAY DELAY: 30/20;NUMBER OF PULSES:36 - 2 passes to nose COMMENTS: Patient tolerated procedure well. and Post care instructions provided, understanding verbalized. Sign Out Discussion: Completed Post op instructions given / with verbal understanding Skin Care after Laser Treatment. NONABLATIVE FRACTIONAL RESURFACING (FRAXEL DUAL) Pre-photos & informed consent obtained prior to first treatment. Treatment: 20 Diagnosis: scar Wavelength: 1550 nm Treatment area: nose Energy (mJ): 70 Treatment settin Passes screen: 8 Total energy (kJ) 0.38 Patient tolerated procedure well. Ice provided immediately after treatment for discomfort. Discussed redness, swelling, and peeling that will occur over the next several days. Patient to use liberal emollient use with Aquaphor or Vaseline. No make up for 4 days. Ice and written post care instructions provided. Charge Code: Bill insurance Return to clinic as scheduled Juju Baez MD August 03, 2024 documented in this encounter [facility] 08-03-2024 Note HNO ID: [id number] Author: JUJU BAEZ MD Service: ? Author Type: Physician Type: Progress Notes Filed: 08/03/2024 10:45 Note Text: Last lasers June 08, 2024 -Nose continuing to improve, happy with results -Using Tretinoin 0.1% Feels like it looked better after last treatment LASER SURGERY PROCEDURAL TIME OUT: Time out verification includes: Audible time-out documented: Yes. Time: 10:12 AM Two Patient Identifiers Correct side and site marking Accurate Consent Agreement on the procedure to be done Correct Positioning Imaging and Test Results Properly Labeled and Displayed if applicable Safety Precautions Based on Patient History or Medication ANESTHETIC: 23% lidocaine / 7% tetracaine ointment x 50 min at home DX: rhinophyma / telengiectasia LASER PROCEDURE: laser benign lesions > 15 PROTECTIVE EYEWEAR APPLIED TO PATIENT'S EYES: goggles. ALL PERSONNEL IN THE ROOM ARE WEARING PROTECTIVE GOGGLES SPECIFIC TO THE LASER WAVELENGTH FOR THIS TREATMENT. TREATMENT #: 27 LASER: V BEAM SPOT SIZE:10mm; ENERGY FLUENCE: 8J/cm2; MODE (TIME): 6 msec; SPRAY DELAY: 30/20;NUMBER OF PULSES:36 - 2 passes to nose COMMENTS: Patient tolerated procedure well. and Post care instructions provided, understanding verbalized. Sign Out Discussion: Completed Post op instructions given / with verbal understanding Skin Care after Laser Treatment. NONABLATIVE FRACTIONAL RESURFACING (FRAXEL DUAL) Pre-photos AND informed consent obtained prior to first treatment. Treatment: 20 Diagnosis: scar Wavelength: 1550 nm Treatment area: nose Energy (mJ): 70 Treatment settin Passes screen: 8 Total energy (kJ) 0.38 Patient tolerated procedure well. Ice provided immediately after treatment for discomfort. Discussed redness, swelling, and peeling that will occur over the next several days. Patient to use liberal emollient use with Aquaphor or Vaseline. No make up for 4 days. Ice and written post care instructions provided. Charge Code: Bill insurance Return to clinic as scheduled Juju Baez MD August 03, 2024 [facility] 07-23-2024 Instructions Janet StoverKINJAL - 07/23/2024 3:04 PM EDT Direct line to schedule [phone] or email [email or web address] Main campus: Saturday & [place] ([place] [place]): Saturday & Saturday V-beam Post Care Instructions It is normal for the skin to be red and swollen after your laser treatment. Most of the redness and swelling subsides within 24 to 48 hours, but occasionally can last for up to one week. -It is fine to wear makeup on the treated area the day after treatment -Do not rub, scratch, or pick at the treated area -You may apply ice to reduce swelling and discomfort for the first 4 hours after your treatment- it is best to ice immediately after your treatment and for 10 minutes of each hour for the 4 hours after your treatment -Do not exercise for 24 hours after your treatment -Please call the office immediately if the area becomes tender, reddened or shows signs of infection. - Avoid exposure to the sun. If sun exposure is expected, apply an SPF 30 or higher sunblock to prevent pigmentation changes until the lesion is healed. Care Of The Treated Area -You can apply a gentle moisturizer or Aqpahor/Vaseline to the treated area. It is important to keep the area moist until healed. -Showers are permitted, but gently pat the area dry. Do not rub with a towel or washcloth as the area is extremely delicate while the bruising (purpura) are present. -Any discomfort you may have (usually not lasting more than a few hours, if any) can be relieved with acetaminophen (Tylenol) or ice packs. If you have any questions or concern, please call the office where you had your treatment. [phone] ([place]) or [phone] ([facility]) Juju Baez MD Dermatology & Cosmetic Surgery Fraxel Dual Instructions Pre-treatment instructions: Tell your doctor if you are taking Isotretinoin (Accutane) or have taken in the last 6 months Avoid having a suntan or using a spray ruby/brozer before treatment You cannot be treated if you are Treatment: When you arrive, a topical anesthetic will be applied to your skin for approximately 1 hour. It is best to arrive with clean skin. You may wish to bring something to help you pass the time (ie book, laptop, iPad, magazine) The length of your time in the office varies, but is usually ~90 minutes. Although there can be some areas treated that feel sensitive, the laser is generally well tolerated Post treatment: Any gentle cleanser is fine (Dove, Cetaphil, Neutrogena). Do not use any harsh, anti-aging/exfoliating cleansers, medications, or scrubs for 1 week after your treatment. You will experience a sunburn-like, burning sensation for about 1 hour after your treatment, then virtually no discomfort. Some areas can feel more sensitive to touch for slightly longer Cool compresses or ice packs are used post treatment for comfort and to decrease swelling. It is fine to take ibuprofen/tylenol for discomfort What to expect in the days after treatment: Redness- You will notice a pink/red tone to your skin for 4-7 days. This is a normal sign that the skin is healing. Some areas can turn to a bronze-like color and last for a few weeks. This is normal. Pinpoint spotting- this is normal and the spots can range from brown to red. Do not try to scrub off, they will slough off in several days Swelling- this varies from person to person and generally resolves in 2-3 days Sunscreen- it is important to avoid sun exposure for 2 weeks post treatment as well as in between your treatments. Use sunscreen with UVA/UVB protection (either with zinc oxide or titanium dioxide) with an SPF of at least 30. Avoid direct sunlight and wear sun protective clothing (wide brimmed hat) Itching/dryness- These are common symptoms once the skin has healed initially. Flakiness and dry crusting will gradually clear. Use bland moisturizers only and/or moisturizing sunscreens. Avoid anti-aging moisturizers with AHA or retinol in them Makeup & sunscreen may be applied after 48 hours Unexpected complications and unwanted side effects such as blistering and scabbing rarely occur. Please call the office immediately if any of these develop What to expect later: More than one treatment is needed to achieve desired results. Both you and your doctor can discuss the number of treatments needed, that are spaced apart at a minimum of 4-6 weeks Over the following weeks and months there will be progressive improvement and evolution of beneficial changes associated with the appearance of healthy youthful skin If you have any questions or concern, please call the office at [phone] Juju Baez MD Dermatology & Cosmetic Surgery documented in this encounter [facility] 06-08-2024 History of Presen t illness Narrative Last lasers 02/24/24 -Nose continuing to improve, happy with results -Using Tretinoin 0.1% -vbeam out of service today, will do fraxel NONABLATIVE FRACTIONAL RESURFACING (FRAXEL DUAL) Pre-photos & informed consent obtained prior to first treatment. Treatment: 19 Diagnosis: scar Wavelength: 1550 nm Treatment area: nose (laser benign lesions < 14) Energy (mJ): 70 Treatment settin Passes screen: 8 Total energy (kJ)0.39 Patient tolerated procedure well. Ice provided immediately after treatment for discomfort. Discussed redness, swelling, and peeling that will occur over the next several days. Patient to use liberal emollient use with Aquaphor or Vaseline. No make up for 4 days. Ice and written post care instructions provided. Charge Code: Bill insurance Return to clinic as scheduled Juju Baez MD June 08, 2024 documented in this encounter [facility] 06-08-2024 Note HNO ID: [id number] Author: JUJU BAEZ MD Service: ? Author Type: Physician Type: Progress Notes Filed: 06/08/2024 09:53 Note Text: Last lasers 02/24/24 -Nose continuing to improve, happy with results -Using Tretinoin 0.1% -vbeam out of service today, will do fraxel NONABLATIVE FRACTIONAL RESURFACING (FRAXEL DUAL) Pre-photos AND informed consent obtained prior to first treatment. Treatment: 19 Diagnosis: scar Wavelength: 1550 nm Treatment area: nose (laser benign lesions < 14) Energy (mJ): 70 Treatment settin Passes screen: 8 Total energy (kJ)0.39 Patient tolerated procedure well. Ice provided immediately after treatment for discomfort. Discussed redness, swelling, and peeling that will occur over the next several days. Patient to use liberal emollient use with Aquaphor or Vaseline. No make up for 4 days. Ice and written post care instructions provided. Charge Code: Bill insurance Return to clinic as scheduled Juju Baez MD June 08, 2024 [facility] 05-11-2024 Instructions Janet Stover LPN - 05/11/2024 8:40 AM EST Direct line to schedule [phone] or email [email or web address] Main campus: Saturday & [place] ([place] [place]): Saturday & Saturday Fraxel Dual Instructions Pre-treatment instructions: Tell your doctor if you are taking Isotretinoin (Accutane) or have taken in the last 6 months Avoid having a suntan or using a spray ruby/brozer before treatment You cannot be treated if you are Treatment: When you arrive, a topical anesthetic will be applied to your skin for approximately 1 hour. It is best to arrive with clean skin. You may wish to bring something to help you pass the time (ie book, laptop, iPad, magazine) The length of your time in the office varies, but is usually ~90 minutes. Although there can be some areas treated that feel sensitive, the laser is generally well tolerated Post treatment: Any gentle cleanser is fine (Dove, Cetaphil, Neutrogena). Do not use any harsh, anti-aging/exfoliating cleansers, medications, or scrubs for 1 week after your treatment. You will experience a sunburn-like, burning sensation for about 1 hour after your treatment, then virtually no discomfort. Some areas can feel more sensitive to touch for slightly longer Cool compresses or ice packs are used post treatment for comfort and to decrease swelling. It is fine to take ibuprofen/tylenol for discomfort What to expect in the days after treatment: Redness- You will notice a pink/red tone to your skin for 4-7 days. This is a normal sign that the skin is healing. Some areas can turn to a bronze-like color and last for a few weeks. This is normal. Pinpoint spotting- this is normal and the spots can range from brown to red. Do not try to scrub off, they will slough off in several days Swelling- this varies from person to person and generally resolves in 2-3 days Sunscreen- it is important to avoid sun exposure for 2 weeks post treatment as well as in between your treatments. Use sunscreen with UVA/UVB protection (either with zinc oxide or titanium dioxide) with an SPF of at least 30. Avoid direct sunlight and wear sun protective clothing (wide brimmed hat) Itching/dryness- These are common symptoms once the skin has healed initially. Flakiness and dry crusting will gradually clear. Use bland moisturizers only and/or moisturizing sunscreens. Avoid anti-aging moisturizers with AHA or retinol in them Makeup & sunscreen may be applied after 48 hours Unexpected complications and unwanted side effects such as blistering and scabbing rarely occur. Please call the office immediately if any of these develop What to expect later: More than one treatment is needed to achieve desired results. Both you and your doctor can discuss the number of treatments needed, that are spaced apart at a minimum of 4-6 weeks Over the following weeks and months there will be progressive improvement and evolution of beneficial changes associated with the appearance of healthy youthful skin If you have any questions or concern, please call the office at [phone] Juju Baez MD Dermatology & Cosmetic Surgery documented in this encounter [facility] 02-24-2024 History of Presen t illness Narrative Last lasers December 16, 2023 -Nose continuing to improve, happy with results -Using Tretinoin 0.1% LASER SURGERY PROCEDURAL TIME OUT: Time out verification includes: Audible time-out documented: Yes. Time: 1438 Two Patient Identifiers Correct side and site marking Accurate Consent Agreement on the procedure to be done Correct Positioning Imaging and Test Results Properly Labeled and Displayed if applicable Safety Precautions Based on Patient History or Medication ANESTHETIC: 23% lidocaine / 7% tetracaine ointment x 60 min at home DX: rhinophyma / telengiectasia LASER PROCEDURE: laser benign lesions > 15 PROTECTIVE EYEWEAR APPLIED TO PATIENT'S EYES: goggles. ALL PERSONNEL IN THE ROOM ARE WEARING PROTECTIVE GOGGLES SPECIFIC TO THE LASER WAVELENGTH FOR THIS TREATMENT. TREATMENT #: 26 LASER: V BEAM SPOT SIZE:10mm; ENERGY FLUENCE: 8J/cm2; MODE (TIME): 6 msec; SPRAY DELAY: 30/20;NUMBER OF PULSES:37 - 2 passes to nose COMMENTS: Patient tolerated procedure well. and Post care instructions provided, understanding verbalized. Sign Out Discussion: Completed Post op instructions given / with verbal understanding Skin Care after Laser Treatment. NONABLATIVE FRACTIONAL RESURFACING (FRAXEL DUAL) Pre-photos & informed consent obtained prior to first treatment. Treatment: 19 Diagnosis: scar Wavelength: 1550 nm Treatment area: nose (10 sq cm) Energy (mJ): 70 Treatment settin Passes screen: 8 Total energy (kJ):0.39 Patient tolerated procedure well. Ice provided immediately after treatment for discomfort. Discussed redness, swelling, and peeling that will occur over the next several days. Patient to use liberal emollient use with Aquaphor or Vaseline. No make up for 4 days. Ice and written post care instructions provided. Charge Code: Bill insurance Return to clinic as needed Juju Baez MD 02/24/24 documented in this encounter [facility] 02-13-2024 Instructions Janet Stover LPN - 02/13/2024 3:06 PM EDT Direct line to schedule [phone] or email [email or web address] Main campus: Saturday & [place] ([place] [place]): Saturday & Saturday Yahir Dual Instructions Pre-treatment instructions: Tell your doctor if you are taking Isotretinoin (Accutane) or have taken in the last 6 months Avoid having a suntan or using a spray ruby/brozer before treatment You cannot be treated if you are Treatment: When you arrive, a topical anesthetic will be applied to your skin for approximately 1 hour. It is best to arrive with clean skin. You may wish to bring something to help you pass the time (ie book, laptop, iPad, magazine) The length of your time in the office varies, but is usually ~90 minutes. Although there can be some areas treated that feel sensitive, the laser is generally well tolerated Post treatment: Any gentle cleanser is fine (Dove, Cetaphil, Neutrogena). Do not use any harsh, anti-aging/exfoliating cleansers, medications, or scrubs for 1 week after your treatment. You will experience a sunburn-like, burning sensation for about 1 hour after your treatment, then virtually no discomfort. Some areas can feel more sensitive to touch for slightly longer Cool compresses or ice packs are used post treatment for comfort and to decrease swelling. It is fine to take ibuprofen/tylenol for discomfort What to expect in the days after treatment: Redness- You will notice a pink/red tone to your skin for 4-7 days. This is a normal sign that the skin is healing. Some areas can turn to a bronze-like color and last for a few weeks. This is normal. Pinpoint spotting- this is normal and the spots can range from brown to red. Do not try to scrub off, they will slough off in several days Swelling- this varies from person to person and generally resolves in 2-3 days Sunscreen- it is important to avoid sun exposure for 2 weeks post treatment as well as in between your treatments. Use sunscreen with UVA/UVB protection (either with zinc oxide or titanium dioxide) with an SPF of at least 30. Avoid direct sunlight and wear sun protective clothing (wide brimmed hat) Itching/dryness- These are common symptoms once the skin has healed initially. Flakiness and dry crusting will gradually clear. Use bland moisturizers only and/or moisturizing sunscreens. Avoid anti-aging moisturizers with AHA or retinol in them Makeup & sunscreen may be applied after 48 hours Unexpected complications and unwanted side effects such as blistering and scabbing rarely occur. Please call the office immediately if any of these develop What to expect later: More than one treatment is needed to achieve desired results. Both you and your doctor can discuss the number of treatments needed, that are spaced apart at a minimum of 4-6 weeks Over the following weeks and months there will be progressive improvement and evolution of beneficial changes associated with the appearance of healthy youthful skin If you have any questions or concern, please call the office at [phone] Juju Baez MD Dermatology & Cosmetic Surgery V-beam Post Care Instructions It is normal for the skin to be red and swollen after your laser treatment. Most of the redness and swelling subsides within 24 to 48 hours, but occasionally can last for up to one week. -It is fine to wear makeup on the treated area the day after treatment -Do not rub, scratch, or pick at the treated area -You may apply ice to reduce swelling and discomfort for the first 4 hours after your treatment- it is best to ice immediately after your treatment and for 10 minutes of each hour for the 4 hours after your treatment -Do not exercise for 24 hours after your treatment -Please call the office immediately if the area becomes tender, reddened or shows signs of infection. - Avoid exposure to the sun. If sun exposure is expected, apply an SPF 30 or higher sunblock to prevent pigmentation changes until the lesion is healed. Care Of The Treated Area -You can apply a gentle moisturizer or Aqpahor/Vaseline to the treated area. It is important to keep the area moist until healed. -Showers are permitted, but gently pat the area dry. Do not rub with a towel or washcloth as the area is extremely delicate while the bruising (purpura) are present. -Any discomfort you may have (usually not lasting more than a few hours, if any) can be relieved with acetaminophen (Tylenol) or ice packs. If you have any questions or concern, please call the office where you had your treatment. [phone] ([place]) or [phone] ([facility]) Juju Baez MD Dermatology & Cosmetic Surgery documented in this encounter [facility] 12-16-2023 History of Presen t illness Narrative RACHEL October 21, 2023 Last lasers -Nose continuing to improve, happy with results -Using Tretinoin 0.1% LASER SURGERY PROCEDURAL TIME OUT: Time out verification includes: Audible time-out documented: Yes. Time: 1455 Two Patient Identifiers Correct side and site marking Accurate Consent Agreement on the procedure to be done Correct Positioning Imaging and Test Results Properly Labeled and Displayed if applicable Safety Precautions Based on Patient History or Medication ANESTHETIC: 23% lidocaine / 7% tetracaine ointment x 60 min at home DX: rhinophyma / telengiectasia LASER PROCEDURE: laser benign lesions > 15 PROTECTIVE EYEWEAR APPLIED TO PATIENT'S EYES: goggles. ALL PERSONNEL IN THE ROOM ARE WEARING PROTECTIVE GOGGLES SPECIFIC TO THE LASER WAVELENGTH FOR THIS TREATMENT. TREATMENT #: 25 LASER: V BEAM SPOT SIZE:10mm; ENERGY FLUENCE: 8J/cm2; MODE (TIME): 6 msec; SPRAY DELAY: 30/20;NUMBER OF PULSES:35 - 2 passes to nose COMMENTS: Patient tolerated procedure well. and Post care instructions provided, understanding verbalized. Sign Out Discussion: Completed Post op instructions given / with verbal understanding Skin Care after Laser Treatment. NONABLATIVE FRACTIONAL RESURFACING (FRAXEL DUAL) Pre-photos & informed consent obtained prior to first treatment. Treatment: 18 Diagnosis: scar Wavelength: 1550 nm Treatment area: nose (10 sq cm) Energy (mJ): 70 Treatment settin Passes screen: 8 Total energy (kJ): 0.38 Patient tolerated procedure well. Ice provided immediately after treatment for discomfort. Discussed redness, swelling, and peeling that will occur over the next several days. Patient to use liberal emollient use with Aquaphor or Vaseline. No make up for 4 days. Ice and written post care instructions provided. Charge Code: Bill insurance Return to clinic as needed Juju Baez MD December 16, 2023 documented in this encounter [facility] 12-09-2023 Instructions Janet Camacho LPN - 12/09/2023 3:38 PM EDT Direct line to schedule [phone] or email [email or web address] Main campus: Saturday & [place] ([place]): Saturday & Saturday [facility] Dual Instructions Pre-treatment instructions: Tell your doctor if you are taking Isotretinoin (Accutane) or have taken in the last 6 months Avoid having a suntan or using a spray ruby/brozer before treatment You cannot be treated if you are Treatment: When you arrive, a topical anesthetic will be applied to your skin for approximately 1 hour. It is best to arrive with clean skin. You may wish to bring something to help you pass the time (ie book, laptop, iPad, magazine) The length of your time in the office varies, but is usually ~90 minutes. Although there can be some areas treated that feel sensitive, the laser is generally well tolerated Post treatment: Any gentle cleanser is fine (Dove, Cetaphil, Neutrogena). Do not use any harsh, anti-aging/exfoliating cleansers, medications, or scrubs for 1 week after your treatment. You will experience a sunburn-like, burning sensation for about 1 hour after your treatment, then virtually no discomfort. Some areas can feel more sensitive to touch for slightly longer Cool compresses or ice packs are used post treatment for comfort and to decrease swelling. It is fine to take ibuprofen/tylenol for discomfort What to expect in the days after treatment: Redness- You will notice a pink/red tone to your skin for 4-7 days. This is a normal sign that the skin is healing. Some areas can turn to a bronze-like color and last for a few weeks. This is normal. Pinpoint spotting- this is normal and the spots can range from brown to red. Do not try to scrub off, they will slough off in several days Swelling- this varies from person to person and generally resolves in 2-3 days Sunscreen- it is important to avoid sun exposure for 2 weeks post treatment as well as in between your treatments. Use sunscreen with UVA/UVB protection (either with zinc oxide or titanium dioxide) with an SPF of at least 30. Avoid direct sunlight and wear sun protective clothing (wide brimmed hat) Itching/dryness- These are common symptoms once the skin has healed initially. Flakiness and dry crusting will gradually clear. Use bland moisturizers only and/or moisturizing sunscreens. Avoid anti-aging moisturizers with AHA or retinol in them Makeup & sunscreen may be applied after 48 hours Unexpected complications and unwanted side effects such as blistering and scabbing rarely occur. Please call the office immediately if any of these develop What to expect later: More than one treatment is needed to achieve desired results. Both you and your doctor can discuss the number of treatments needed, that are spaced apart at a minimum of 4-6 weeks Over the following weeks and months there will be progressive improvement and evolution of beneficial changes associated with the appearance of healthy youthful skin If you have any questions or concern, please call the office at [phone] Juju Baez MD Dermatology & Cosmetic Surgery V-beam Post Care Instructions It is normal for the skin to be red and swollen after your laser treatment. Most of the redness and swelling subsides within 24 to 48 hours, but occasionally can last for up to one week. -It is fine to wear makeup on the treated area the day after treatment -Do not rub, scratch, or pick at the treated area -You may apply ice to reduce swelling and discomfort for the first 4 hours after your treatment- it is best to ice immediately after your treatment and for 10 minutes of each hour for the 4 hours after your treatment -Do not exercise for 24 hours after your treatment -Please call the office immediately if the area becomes tender, reddened or shows signs of infection. - Avoid exposure to the sun. If sun exposure is expected, apply an SPF 30 or higher sunblock to prevent pigmentation changes until the lesion is healed. Care Of The Treated Area -You can apply a gentle moisturizer or Aqpahor/Vaseline to the treated area. It is important to keep the area moist until healed. -Showers are permitted, but gently pat the area dry. Do not rub with a towel or washcloth as the area is extremely delicate while the bruising (purpura) are present. -Any discomfort you may have (usually not lasting more than a few hours, if any) can be relieved with acetaminophen (Tylenol) or ice packs. If you have any questions or concern, please call the office where you had your treatment. [phone] ([place]) or [phone] ([facility]) Juju Baez MD Dermatology & Cosmetic Surgery documented in this encounter [facility] 10-21-2023 History of Presen t illness Narrative [facility] 06-24-23Last lasers Nose improving- texture & color , happy with results Getting better with each treatment Vbeam then Fraxel Using Tretinoin 0.1% LASER SURGERY PROCEDURAL TIME OUT: Time out verification includes: Audible time-out documented: Yes. Time: 8:31 AM Two Patient Identifiers Correct side and site marking Accurate Consent Agreement on the procedure to be done Correct Positioning Imaging and Test Results Properly Labeled and Displayed if applicable Safety Precautions Based on Patient History or Medication ANESTHETIC: 23% lidocaine / 7% tetracaine ointment x 60 min at home DX: rhinophyma / telengiectasia LASER PROCEDURE: laser benign lesions > 15 PROTECTIVE EYEWEAR APPLIED TO PATIENT'S EYES: goggles. ALL PERSONNEL IN THE ROOM ARE WEARING PROTECTIVE GOGGLES SPECIFIC TO THE LASER WAVELENGTH FOR THIS TREATMENT. TREATMENT #: 24 LASER: V BEAM SPOT SIZE:7 mm; ENERGY FLUENCE: 9J/cm2; MODE (TIME): 10 msec; SPRAY DELAY: 30/20;NUMBER OF PULSES:50 - 2 passes to nose COMMENTS: Patient tolerated procedure well. and Post care instructions provided, understanding verbalized. Sign Out Discussion: Completed Post op instructions given / with verbal understanding Skin Care after Laser Treatment. NONABLATIVE FRACTIONAL RESURFACING (FRAXEL DUAL) Pre-photos & informed consent obtained prior to first treatment. Treatment: 17 Diagnosis: scar Wavelength: 1550 nm Treatment area: nose (10 sq cm) Energy (mJ): 70 Treatment settin Passes screen: 8 Total energy (kJ): 0.24 Wavelength: 1927nm Treatment area: nose (10 sq cm) Energy (mJ): 10 Treatment settin Passes screen: 8, 4 actual Total energy (kJ): 0.04 Patient tolerated procedure well. Ice provided immediately after treatment for discomfort. Discussed redness, swelling, and peeling that will occur over the next several days. Patient to use liberal emollient use with Aquaphor or Vaseline. No make up for 4 days. Ice and written post care instructions provided. Charge Code: Bill insurance Return to clinic as needed Juju Baez MD October 21, 2023 documented in this encounter [facility] 10-03-2023 Instructions Janet Camacho LPN - 10/03/2023 10:39 AM EDT Direct line to schedule [phone] or email [email or web address] Main campus: Saturday & [place] ([place]): Saturday & Saturday V-beam Post Care Instructions It is normal for the skin to be red and swollen after your laser treatment. Most of the redness and swelling subsides within 24 to 48 hours, but occasionally can last for up to one week. -It is fine to wear makeup on the treated area the day after treatment -Do not rub, scratch, or pick at the treated area -You may apply ice to reduce swelling and discomfort for the first 4 hours after your treatment- it is best to ice immediately after your treatment and for 10 minutes of each hour for the 4 hours after your treatment -Do not exercise for 24 hours after your treatment -Please call the office immediately if the area becomes tender, reddened or shows signs of infection. - Avoid exposure to the sun. If sun exposure is expected, apply an SPF 30 or higher sunblock to prevent pigmentation changes until the lesion is healed. Care Of The Treated Area -You can apply a gentle moisturizer or Aqpahor/Vaseline to the treated area. It is important to keep the area moist until healed. -Showers are permitted, but gently pat the area dry. Do not rub with a towel or washcloth as the area is extremely delicate while the bruising (purpura) are present. -Any discomfort you may have (usually not lasting more than a few hours, if any) can be relieved with acetaminophen (Tylenol) or ice packs. If you have any questions or concern, please call the office where you had your treatment. [phone] ([place]) or [phone] ([facility]) Juju Baez MD Dermatology & Cosmetic Surgery [facility] Dual Instructions Pre-treatment instructions: Tell your doctor if you are taking Isotretinoin (Accutane) or have taken in the last 6 months Avoid having a suntan or using a spray ruby/brozer before treatment You cannot be treated if you are Treatment: When you arrive, a topical anesthetic will be applied to your skin for approximately 1 hour. It is best to arrive with clean skin. You may wish to bring something to help you pass the time (ie book, laptop, iPad, magazine) The length of your time in the office varies, but is usually ~90 minutes. Although there can be some areas treated that feel sensitive, the laser is generally well tolerated Post treatment: Any gentle cleanser is fine (Dove, Cetaphil, Neutrogena). Do not use any harsh, anti-aging/exfoliating cleansers, medications, or scrubs for 1 week after your treatment. You will experience a sunburn-like, burning sensation for about 1 hour after your treatment, then virtually no discomfort. Some areas can feel more sensitive to touch for slightly longer Cool compresses or ice packs are used post treatment for comfort and to decrease swelling. It is fine to take ibuprofen/tylenol for discomfort What to expect in the days after treatment: Redness- You will notice a pink/red tone to your skin for 4-7 days. This is a normal sign that the skin is healing. Some areas can turn to a bronze-like color and last for a few weeks. This is normal. Pinpoint spotting- this is normal and the spots can range from brown to red. Do not try to scrub off, they will slough off in several days Swelling- this varies from person to person and generally resolves in 2-3 days Sunscreen- it is important to avoid sun exposure for 2 weeks post treatment as well as in between your treatments. Use sunscreen with UVA/UVB protection (either with zinc oxide or titanium dioxide) with an SPF of at least 30. Avoid direct sunlight and wear sun protective clothing (wide brimmed hat) Itching/dryness- These are common symptoms once the skin has healed initially. Flakiness and dry crusting will gradually clear. Use bland moisturizers only and/or moisturizing sunscreens. Avoid anti-aging moisturizers with AHA or retinol in them Makeup & sunscreen may be applied after 48 hours Unexpected complications and unwanted side effects such as blistering and scabbing rarely occur. Please call the office immediately if any of these develop What to expect later: More than one treatment is needed to achieve desired results. Both you and your doctor can discuss the number of treatments needed, that are spaced apart at a minimum of 4-6 weeks Over the following weeks and months there will be progressive improvement and evolution of beneficial changes associated with the appearance of healthy youthful skin If you have any questions or concern, please call the office at [phone] Juju Baez MD Dermatology & Cosmetic Surgery documented in this encounter [facility] 06-24-2023 History of Presen t illness Narrative [facility] 04/15/23 Last lasers Nose improving- texture & color , happy with results Getting better with each treatment Vbeam then Fraxel Using Tretinoin 0.1% LASER SURGERY PROCEDURAL TIME OUT: Time out verification includes: Audible time-out documented: Yes. Time: 1500 Two Patient Identifiers Correct side and site marking Accurate Consent Agreement on the procedure to be done Correct Positioning Imaging and Test Results Properly Labeled and Displayed if applicable Safety Precautions Based on Patient History or Medication ANESTHETIC: 23% lidocaine / 7% tetracaine ointment x 60 min at home DX: rhinophyma / telengiectasia LASER PROCEDURE: laser benign lesions > 15 PROTECTIVE EYEWEAR APPLIED TO PATIENT'S EYES: goggles. ALL PERSONNEL IN THE ROOM ARE WEARING PROTECTIVE GOGGLES SPECIFIC TO THE LASER WAVELENGTH FOR THIS TREATMENT. TREATMENT #: 23 LASER: V BEAM SPOT SIZE:10 mm; ENERGY FLUENCE: 8J/cm2; MODE (TIME): 10 msec; SPRAY DELAY: 30/20;NUMBER OF PULSES:45 - 2 passes to nose COMMENTS: Patient tolerated procedure well. and Post care instructions provided, understanding verbalized. Sign Out Discussion: Completed Post op instructions given / with verbal understanding Skin Care after Laser Treatment. NONABLATIVE FRACTIONAL RESURFACING (FRAXEL DUAL) Pre-photos & informed consent obtained prior to first treatment. Treatment: 16 Diagnosis: scar Wavelength: 1550 nm Treatment area: nose (10 sq cm) Energy (mJ): 70 Treatment settin Passes screen: 8 Total energy (kJ): 0.41 Patient tolerated procedure well. Ice provided immediately after treatment for discomfort. Discussed redness, swelling, and peeling that will occur over the next several days. Patient to use liberal emollient use with Aquaphor or Vaseline. No make up for 4 days. Ice and written post care instructions provided. PROCEDURE: CRYOSURGERY OF NONMALIGNANT LESION Risks, benefits, alternatives and personnel required for cryosurgery reviewed with patient. Patient verbalizes understanding and wished to proceed. Cryosurgery performed with Liquid Nitrogen via cryostat spray. Patient tolerated well. Wound care instructions provided, patient verbalizes understanding. Sites: right upper eyelid Number of lesions: 1 Diagnosis: inflamed acrochordon Charge Code: Bill insurance Return to clinic as needed I agree with the Chief Complaint, ROS, and Past Histories independently gathered by the clinical print support specialist and the remaining scribed note accurately describes my personal service to the patient. The documentation for this note was completed by Britt Lawrence RN acting as scribe for Juju Baez MD. June 24, 2023 3:09 PM. Juju Baez MD documented in this encounter [facility] 06-20-2023 Instructions Britt Lawrence RN - 06/20/2023 2:13 PM EST Direct line to schedule [phone] or email [email or web address] Main campus: Saturday & [place] ([place]): Saturday & Saturday SKIN CARE AFTER CRYOSURGERY The skin's response to cryosurgery (freezing) can be mild to severe, depending on the depth of the freeze and location of the area treated. You may have minimal redness and swelling with little discomfort or significant discoloration and blistering with considerable discomfort. A burning sensation in the skin may last from several minutes to several hours after the procedure. Follow these instructions when caring for an area treated by cryosurgery: 1. Please clean the area every day with gentle soap and water. It is not necessary to cover the site with a bandage. However, it may be used for protection and it must be changed daily. Do not leave a soiled or wet bandage on the wound. 2. If you are experiencing discomfort you may use a cool compress, elevate the area or take over the counter pain relievers. 3. Apply Vaseline or Aquaphor daily to the site. This can help with itching, irritation, and discomfort. -The lesion may take 2-4 weeks to fully resolve. Depending on the severity of treatment and lesion treated, it may take longer. -DO NOT USE NEOSPORIN OR BACITRACIN as there is a fairly high incidence of allergic response to these products. -You may experience some mild discomfort, redness, swelling, and/or a clear discharge from the wound after your procedure. Severe pain, worsening swelling, and foul-smelling discharge from the site are NOT to be expected. If you have concerns about how your wounds are healing, please send your provider a isocket message or call . [facility] Dual Instructions Pre-treatment instructions: Tell your doctor if you are taking Isotretinoin (Accutane) or have taken in the last 6 months Avoid having a suntan or using a spray ruby/brozer before treatment You cannot be treated if you are Treatment: When you arrive, a topical anesthetic will be applied to your skin for approximately 1 hour. It is best to arrive with clean skin. You may wish to bring something to help you pass the time (ie book, laptop, iPad, magazine) The length of your time in the office varies, but is usually ~90 minutes. Although there can be some areas treated that feel sensitive, the laser is generally well tolerated Post treatment: Any gentle cleanser is fine (Dove, Cetaphil, Neutrogena). Do not use any harsh, anti-aging/exfoliating cleansers, medications, or scrubs for 1 week after your treatment. You will experience a sunburn-like, burning sensation for about 1 hour after your treatment, then virtually no discomfort. Some areas can feel more sensitive to touch for slightly longer Cool compresses or ice packs are used post treatment for comfort and to decrease swelling. It is fine to take ibuprofen/tylenol for discomfort What to expect in the days after treatment: Redness- You will notice a pink/red tone to your skin for 4-7 days. This is a normal sign that the skin is healing. Some areas can turn to a bronze-like color and last for a few weeks. This is normal. Pinpoint spotting- this is normal and the spots can range from brown to red. Do not try to scrub off, they will slough off in several days Swelling- this varies from person to person and generally resolves in 2-3 days Sunscreen- it is important to avoid sun exposure for 2 weeks post treatment as well as in between your treatments. Use sunscreen with UVA/UVB protection (either with zinc oxide or titanium dioxide) with an SPF of at least 30. Avoid direct sunlight and wear sun protective clothing (wide brimmed hat) Itching/dryness- These are common symptoms once the skin has healed initially. Flakiness and dry crusting will gradually clear. Use bland moisturizers only and/or moisturizing sunscreens. Avoid anti-aging moisturizers with AHA or retinol in them Makeup & sunscreen may be applied after 48 hours Unexpected complications and unwanted side effects such as blistering and scabbing rarely occur. Please call the office immediately if any of these develop What to expect later: More than one treatment is needed to achieve desired results. Both you and your doctor can discuss the number of treatments needed, that are spaced apart at a minimum of 4-6 weeks Over the following weeks and months there will be progressive improvement and evolution of beneficial changes associated with the appearance of healthy youthful skin If you have any questions or concern, please call the office at [phone] Juju Baez MD Dermatology & Cosmetic Surgery V-beam Post Care Instructions It is normal for the skin to be red and swollen after your laser treatment. Most of the redness and swelling subsides within 24 to 48 hours, but occasionally can last for up to one week. -It is fine to wear makeup on the treated area the day after treatment -Do not rub, scratch, or pick at the treated area -You may apply ice to reduce swelling and discomfort for the first 4 hours after your treatment- it is best to ice immediately after your treatment and for 10 minutes of each hour for the 4 hours after your treatment -Do not exercise for 24 hours after your treatment -Please call the office immediately if the area becomes tender, reddened or shows signs of infection. - Avoid exposure to the sun. If sun exposure is expected, apply an SPF 30 or higher sunblock to prevent pigmentation changes until the lesion is healed. Care Of The Treated Area -You can apply a gentle moisturizer or Aqpahor/Vaseline to the treated area. It is important to keep the area moist until healed. -Showers are permitted, but gently pat the area dry. Do not rub with a towel or washcloth as the area is extremely delicate while the bruising (purpura) are present. -Any discomfort you may have (usually not lasting more than a few hours, if any) can be relieved with acetaminophen (Tylenol) or ice packs. If you have any questions or concern, please call the office where you had your treatment. documented in this encounter [facility] 01-07-2023 History of Presen t illness Narrative [facility] November 05, 2022 Nose improving- texture & color , happy with results Getting better with each treatment Vbeam then Fraxel Using Tretinoin today to 0.1% LASER SURGERY PROCEDURAL TIME OUT: Time out verification includes: Audible time-out documented: Yes. Time: 10:51 AM Two Patient Identifiers Correct side and site marking Accurate Consent Agreement on the procedure to be done Correct Positioning Imaging and Test Results Properly Labeled and Displayed if applicable Safety Precautions Based on Patient History or Medication ANESTHETIC: 23% lidocaine / 7% tetracaine ointment x 60 min at home DX: rhinophyma / telengiectasia LASER PROCEDURE: laser benign lesions > 15 PROTECTIVE EYEWEAR APPLIED TO PATIENT'S EYES: goggles. ALL PERSONNEL IN THE ROOM ARE WEARING PROTECTIVE GOGGLES SPECIFIC TO THE LASER WAVELENGTH FOR THIS TREATMENT. TREATMENT #: 21 LASER: V BEAM SPOT SIZE:10 mm; ENERGY FLUENCE: 7J/cm2; MODE (TIME): 6 msec; SPRAY DELAY: 30/20;NUMBER OF PULSES: 32- 2 passes to nose COMMENTS: Patient tolerated procedure well. and Post care instructions provided, understanding verbalized. Sign Out Discussion: Completed Post op instructions given / with verbal understanding Skin Care after Laser Treatment. NONABLATIVE FRACTIONAL RESURFACING (FRAXEL DUAL) Pre-photos & informed consent obtained prior to first treatment. Treatment: 16 Diagnosis: scar Wavelength: 1550 nm Treatment area: nose (10 sq cm) Energy (mJ): 70 Treatment settin Passes screen: 8 Total energy (kJ): 0.34 Patient tolerated procedure well. Ice provided immediately after treatment for discomfort. Discussed redness, swelling, and peeling that will occur over the next several days. Patient to use liberal emollient use with Aquaphor or Vaseline. No make up for 4 days. Ice and written post care instructions provided. Charge Code: Bill insurance Return to clinic as needed Juju Baez MD January 07, 2023 documented in this encounter [facility] 12-31-2022 Instructions Janet Camacho LPN - 12/31/2022 3:40 PM EDT V-beam Post Care Instructions It is normal for the skin to be red and swollen after your laser treatment. Most of the redness and swelling subsides within 24 to 48 hours, but occasionally can last for up to one week. -It is fine to wear makeup on the treated area the day after treatment -Do not rub, scratch, or pick at the treated area -You may apply ice to reduce swelling and discomfort for the first 4 hours after your treatment- it is best to ice immediately after your treatment and for 10 minutes of each hour for the 4 hours after your treatment -Do not exercise for 24 hours after your treatment -Please call the office immediately if the area becomes tender, reddened or shows signs of infection. - Avoid exposure to the sun. If sun exposure is expected, apply an SPF 30 or higher sunblock to prevent pigmentation changes until the lesion is healed. Care Of The Treated Area -You can apply a gentle moisturizer or Aqpahor/Vaseline to the treated area. It is important to keep the area moist until healed. -Showers are permitted, but gently pat the area dry. Do not rub with a towel or washcloth as the area is extremely delicate while the bruising (purpura) are present. -Any discomfort you may have (usually not lasting more than a few hours, if any) can be relieved with acetaminophen (Tylenol) or ice packs. If you have any questions or concern, please call the office where you had your treatment. [phone] ([place]) or [phone] ([facility]) Juju Baez MD Dermatology & Cosmetic Surgery documented in this encounter [facility] 11-05-2022 History of Presen t illness Narrative Nose improving- texture & color , happy with results Vbeacaryn then Yahir RAMOS 08/10/22 Will increase Tretinoin today to 0.1% LASER SURGERY PROCEDURAL TIME OUT: Time out verification includes: Audible time-out documented: Yes. Time: 1:24 PM Two Patient Identifiers Correct side and site marking Accurate Consent Agreement on the procedure to be done Correct Positioning Imaging and Test Results Properly Labeled and Displayed if applicable Safety Precautions Based on Patient History or Medication ANESTHETIC: 23% lidocaine / 7% tetracaine ointment x 60 min at home DX: rhinophyma / telengiectasia LASER PROCEDURE: Cutaneous Vascular Proliferative Lesion 10-50 sq cm PROTECTIVE EYEWEAR APPLIED TO PATIENT'S EYES: goggles. ALL PERSONNEL IN THE ROOM ARE WEARING PROTECTIVE GOGGLES SPECIFIC TO THE LASER WAVELENGTH FOR THIS TREATMENT. TREATMENT #: 20 LASER: V BEAM SPOT SIZE:10 mm; ENERGY FLUENCE: 7J/cm2; MODE (TIME): 6 msec; SPRAY DELAY: 30/20;NUMBER OF PULSES: 40 - 2 passes to nose COMMENTS: Patient tolerated procedure well. and Post care instructions provided, understanding verbalized. Sign Out Discussion: Completed Post op instructions given / with verbal understanding Skin Care after Laser Treatment. NONABLATIVE FRACTIONAL RESURFACING (FRAXEL DUAL) Pre-photos & informed consent obtained prior to first treatment. Treatment: 15 Diagnosis: scar Wavelength: 1550 nm Treatment area: nose Energy (mJ): 40 Treatment settin Passes screen: 8 Total energy (kJ): 0.39 Patient tolerated procedure well. Ice provided immediately after treatment for discomfort. Discussed redness, swelling, and peeling that will occur over the next several days. Patient to use liberal emollient use with Aquaphor or Vaseline. No make up for 4 days. Ice and written post care instructions provided. Charge Code: Bill insurance Return to clinic as needed Juju Baez MD November 05, 2022 documented in this encounter [facility] 10-29-2022 Instructions Janet Camacho LPN - 10/29/2022 5:01 PM EDT V-beam Post Care Instructions It is normal for the skin to be red and swollen after your laser treatment. Most of the redness and swelling subsides within 24 to 48 hours, but occasionally can last for up to one week. -It is fine to wear makeup on the treated area the day after treatment -Do not rub, scratch, or pick at the treated area -You may apply ice to reduce swelling and discomfort for the first 4 hours after your treatment- it is best to ice immediately after your treatment and for 10 minutes of each hour for the 4 hours after your treatment -Do not exercise for 24 hours after your treatment -Please call the office immediately if the area becomes tender, reddened or shows signs of infection. - Avoid exposure to the sun. If sun exposure is expected, apply an SPF 30 or higher sunblock to prevent pigmentation changes until the lesion is healed. Care Of The Treated Area -You can apply a gentle moisturizer or Aqpahor/Vaseline to the treated area. It is important to keep the area moist until healed. -Showers are permitted, but gently pat the area dry. Do not rub with a towel or washcloth as the area is extremely delicate while the bruising (purpura) are present. -Any discomfort you may have (usually not lasting more than a few hours, if any) can be relieved with acetaminophen (Tylenol) or ice packs. If you have any questions or concern, please call the office where you had your treatment. [phone] ([place]) or [phone] ([facility]) Juju Baez MD Dermatology & Cosmetic Surgery Yahir Dual Instructions Pre-treatment instructions: Tell your doctor if you are taking Isotretinoin (Accutane) or have taken in the last 6 months Avoid having a suntan or using a spray ruby/brozer before treatment You cannot be treated if you are Treatment: When you arrive, a topical anesthetic will be applied to your skin for approximately 1 hour. It is best to arrive with clean skin. You may wish to bring something to help you pass the time (ie book, laptop, iPad, magazine) The length of your time in the office varies, but is usually ~90 minutes. Although there can be some areas treated that feel sensitive, the laser is generally well tolerated Post treatment: Any gentle cleanser is fine (Dove, Cetaphil, Neutrogena). Do not use any harsh, anti-aging/exfoliating cleansers, medications, or scrubs for 1 week after your treatment. You will experience a sunburn-like, burning sensation for about 1 hour after your treatment, then virtually no discomfort. Some areas can feel more sensitive to touch for slightly longer Cool compresses or ice packs are used post treatment for comfort and to decrease swelling. It is fine to take ibuprofen/tylenol for discomfort What to expect in the days after treatment: Redness- You will notice a pink/red tone to your skin for 4-7 days. This is a normal sign that the skin is healing. Some areas can turn to a bronze-like color and last for a few weeks. This is normal. Pinpoint spotting- this is normal and the spots can range from brown to red. Do not try to scrub off, they will slough off in several days Swelling- this varies from person to person and generally resolves in 2-3 days Sunscreen- it is important to avoid sun exposure for 2 weeks post treatment as well as in between your treatments. Use sunscreen with UVA/UVB protection (either with zinc oxide or titanium dioxide) with an SPF of at least 30. Avoid direct sunlight and wear sun protective clothing (wide brimmed hat) Itching/dryness- These are common symptoms once the skin has healed initially. Flakiness and dry crusting will gradually clear. Use bland moisturizers only and/or moisturizing sunscreens. Avoid anti-aging moisturizers with AHA or retinol in them Makeup & sunscreen may be applied after 48 hours Unexpected complications and unwanted side effects such as blistering and scabbing rarely occur. Please call the office immediately if any of these develop What to expect later: More than one treatment is needed to achieve desired results. Both you and your doctor can discuss the number of treatments needed, that are spaced apart at a minimum of 4-6 weeks Over the following weeks and months there will be progressive improvement and evolution of beneficial changes associated with the appearance of healthy youthful skin If you have any questions or concern, please call the office at [phone] Juju Baez MD Dermatology & Cosmetic Surgery documented in this encounter [facility] 06-12-2022 History of Presen t illness Narrative Nose improving- texture & color , happy with results Vbeam then Fraxel LASER SURGERY PROCEDURAL TIME OUT: Time out verification includes: Audible time-out documented: Yes. Time: 1:29 PM Two Patient Identifiers Correct side and site marking Accurate Consent Agreement on the procedure to be done Correct Positioning Imaging and Test Results Properly Labeled and Displayed if applicable Safety Precautions Based on Patient History or Medication ANESTHETIC: 23% lidocaine / 7% tetracaine ointment x 30 min at home DX: rhinophyma / telengiectasia LASER PROCEDURE: Cutaneous Vascular Proliferative Lesion 10-50 sq cm PROTECTIVE EYEWEAR APPLIED TO PATIENT'S EYES: goggles. ALL PERSONNEL IN THE ROOM ARE WEARING PROTECTIVE GOGGLES SPECIFIC TO THE LASER WAVELENGTH FOR THIS TREATMENT. TREATMENT #: 18 LASER: V BEAM SPOT SIZE:10 mm; ENERGY FLUENCE: 7.5J/cm2; MODE (TIME): 6 msec; SPRAY DELAY: 30/20;NUMBER OF PULSES: 43 - 2 passes to nose COMMENTS: Patient tolerated procedure well. and Post care instructions provided, understanding verbalized. Sign Out Discussion: Completed Post op instructions given / with verbal understanding Skin Care after Laser Treatment. NONABLATIVE FRACTIONAL RESURFACING (FRAXEL DUAL) Pre-photos & informed consent obtained prior to first treatment. Treatment: 13 Diagnosis: scar Wavelength: 1550 nm Treatment area: nose Energy (mJ): 50 Treatment settin Passes screen: 8 Total energy (kJ): 0.34 Patient tolerated procedure well. Ice provided immediately after treatment for discomfort. Discussed redness, swelling, and peeling that will occur over the next several days. Patient to use liberal emollient use with Aquaphor or Vaseline. No make up for 4 days. Ice and written post care instructions provided. Charge Code: Bill insurance Return to clinic as needed Juju Baez MD June 12, 2022 documented in this encounter [facility] 05-31-2022 Instructions Ysabel Sommers Cma - 05/31/2022 1:21 PM EST Direct line to schedule [phone] or email [email or web address] Main campus: Saturday & Rebeka (Uzair Martell): Saturday & Saturday V-beam Post Care Instructions It is normal for the skin to be red and swollen after your laser treatment. Most of the redness and swelling subsides within 24 to 48 hours, but occasionally can last for up to one week. -It is fine to wear makeup on the treated area the day after treatment -Do not rub, scratch, or pick at the treated area -You may apply ice to reduce swelling and discomfort for the first 4 hours after your treatment- it is best to ice immediately after your treatment and for 10 minutes of each hour for the 4 hours after your treatment -Do not exercise for 24 hours after your treatment -Please call the office immediately if the area becomes tender, reddened or shows signs of infection. - Avoid exposure to the sun. If sun exposure is expected, apply an SPF 30 or higher sunblock to prevent pigmentation changes until the lesion is healed. Care Of The Treated Area -You can apply a gentle moisturizer or Aqpahor/Vaseline to the treated area. It is important to keep the area moist until healed. -Showers are permitted, but gently pat the area dry. Do not rub with a towel or washcloth as the area is extremely delicate while the bruising (purpura) are present. -Any discomfort you may have (usually not lasting more than a few hours, if any) can be relieved with acetaminophen (Tylenol) or ice packs. If you have any questions or concern, please call the office where you had your treatment. [phone] ([place]) or [phone] ([facility]) Juju Baez MD Dermatology & Cosmetic Surgery Harryxgeovanna Dual Instructions Pre-treatment instructions: Tell your doctor if you are taking Isotretinoin (Accutane) or have taken in the last 6 months Avoid having a suntan or using a spray ruby/brozer before treatment You cannot be treated if you are Treatment: When you arrive, a topical anesthetic will be applied to your skin for approximately 1 hour. It is best to arrive with clean skin. You may wish to bring something to help you pass the time (ie book, laptop, iPad, magazine) The length of your time in the office varies, but is usually ~90 minutes. Although there can be some areas treated that feel sensitive, the laser is generally well tolerated Post treatment: Any gentle cleanser is fine (Dove, Cetaphil, Neutrogena). Do not use any harsh, anti-aging/exfoliating cleansers, medications, or scrubs for 1 week after your treatment. You will experience a sunburn-like, burning sensation for about 1 hour after your treatment, then virtually no discomfort. Some areas can feel more sensitive to touch for slightly longer Cool compresses or ice packs are used post treatment for comfort and to decrease swelling. It is fine to take ibuprofen/tylenol for discomfort What to expect in the days after treatment: Redness- You will notice a pink/red tone to your skin for 4-7 days. This is a normal sign that the skin is healing. Some areas can turn to a bronze-like color and last for a few weeks. This is normal. Pinpoint spotting- this is normal and the spots can range from brown to red. Do not try to scrub off, they will slough off in several days Swelling- this varies from person to person and generally resolves in 2-3 days Sunscreen- it is important to avoid sun exposure for 2 weeks post treatment as well as in between your treatments. Use sunscreen with UVA/UVB protection (either with zinc oxide or titanium dioxide) with an SPF of at least 30. Avoid direct sunlight and wear sun protective clothing (wide brimmed hat) Itching/dryness- These are common symptoms once the skin has healed initially. Flakiness and dry crusting will gradually clear. Use bland moisturizers only and/or moisturizing sunscreens. Avoid anti-aging moisturizers with AHA or retinol in them Makeup & sunscreen may be applied after 48 hours Unexpected complications and unwanted side effects such as blistering and scabbing rarely occur. Please call the office immediately if any of these develop What to expect later: More than one treatment is needed to achieve desired results. Both you and your doctor can discuss the number of treatments needed, that are spaced apart at a minimum of 4-6 weeks Over the following weeks and months there will be progressive improvement and evolution of beneficial changes associated with the appearance of healthy youthful skin If you have any questions or concern, please call the office at [phone] Juju Baez MD Dermatology & Cosmetic Surgery documented in this encounter [facility] 03-27-2022 History of Presen t illness Narrative Nose improving- texture & color , happy with results Vbeam then Fraxel LASER SURGERY PROCEDURAL TIME OUT: Time out verification includes: Audible time-out documented: Yes. Time: 1:42 PM Two Patient Identifiers Correct side and site marking Accurate Consent Agreement on the procedure to be done Correct Positioning Imaging and Test Results Properly Labeled and Displayed if applicable Safety Precautions Based on Patient History or Medication ANESTHETIC: 23% lidocaine / 7% tetracaine ointment x 30 min at home DX: rhinophyma / telengiectasia LASER PROCEDURE: Cutaneous Vascular Proliferative Lesion 10-50 sq cm PROTECTIVE EYEWEAR APPLIED TO PATIENT'S EYES: goggles. ALL PERSONNEL IN THE ROOM ARE WEARING PROTECTIVE GOGGLES SPECIFIC TO THE LASER WAVELENGTH FOR THIS TREATMENT. TREATMENT #: 17 LASER: V BEAM SPOT SIZE:10 mm; ENERGY FLUENCE: 7.5J/cm2; MODE (TIME): 6 msec; SPRAY DELAY: 30/20;NUMBER OF PULSES: 35 -2 passes to nose COMMENTS: Patient tolerated procedure well. and Post care instructions provided, understanding verbalized. Sign Out Discussion: Completed Post op instructions given / with verbal understanding Skin Care after Laser Treatment. NONABLATIVE FRACTIONAL RESURFACING (FRAXEL DUAL) Pre-photos & informed consent obtained prior to first treatment. Treatment: 12 Diagnosis: scar Wavelength: 1550 nm Treatment area: nose Energy (mJ): 70 Treatment settin Passes screen: 8 Total energy (kJ): 0.39 Patient tolerated procedure well. Ice provided immediately after treatment for discomfort. Discussed redness, swelling, and peeling that will occur over the next several days. Patient to use liberal emollient use with Aquaphor or Vaseline. No make up for 4 days. Ice and written post care instructions provided. Charge Code: Bill insurance Return to clinic as needed Juju Baez MD March 27, 2022 documented in this encounter [facility] 03-20-2022 Instructions Ysabel Sommers [facility] - 03/20/2022 5:05 PM EST Direct line to schedule [phone] or email [email or web address] Main campus: Saturday & Rebeka (Uzair Martell): Saturday & Saturday V-beam Post Care Instructions It is normal for the skin to be red and swollen after your laser treatment. Most of the redness and swelling subsides within 24 to 48 hours, but occasionally can last for up to one week. -It is fine to wear makeup on the treated area the day after treatment -Do not rub, scratch, or pick at the treated area -You may apply ice to reduce swelling and discomfort for the first 4 hours after your treatment- it is best to ice immediately after your treatment and for 10 minutes of each hour for the 4 hours after your treatment -Do not exercise for 24 hours after your treatment -Please call the office immediately if the area becomes tender, reddened or shows signs of infection. - Avoid exposure to the sun. If sun exposure is expected, apply an SPF 30 or higher sunblock to prevent pigmentation changes until the lesion is healed. Care Of The Treated Area -You can apply a gentle moisturizer or Aqpahor/Vaseline to the treated area. It is important to keep the area moist until healed. -Showers are permitted, but gently pat the area dry. Do not rub with a towel or washcloth as the area is extremely delicate while the bruising (purpura) are present. -Any discomfort you may have (usually not lasting more than a few hours, if any) can be relieved with acetaminophen (Tylenol) or ice packs. If you have any questions or concern, please call the office where you had your treatment. [phone] ([place]) or [phone] ([facility]) Juju Baez MD Dermatology & Cosmetic Surgery Fraxel Dual Instructions Pre-treatment instructions: Tell your doctor if you are taking Isotretinoin (Accutane) or have taken in the last 6 months Avoid having a suntan or using a spray ruby/brozer before treatment You cannot be treated if you are Treatment: When you arrive, a topical anesthetic will be applied to your skin for approximately 1 hour. It is best to arrive with clean skin. You may wish to bring something to help you pass the time (ie book, laptop, iPad, magazine) The length of your time in the office varies, but is usually ~90 minutes. Although there can be some areas treated that feel sensitive, the laser is generally well tolerated Post treatment: Any gentle cleanser is fine (Dove, Cetaphil, Neutrogena). Do not use any harsh, anti-aging/exfoliating cleansers, medications, or scrubs for 1 week after your treatment. You will experience a sunburn-like, burning sensation for about 1 hour after your treatment, then virtually no discomfort. Some areas can feel more sensitive to touch for slightly longer Cool compresses or ice packs are used post treatment for comfort and to decrease swelling. It is fine to take ibuprofen/tylenol for discomfort What to expect in the days after treatment: Redness- You will notice a pink/red tone to your skin for 4-7 days. This is a normal sign that the skin is healing. Some areas can turn to a bronze-like color and last for a few weeks. This is normal. Pinpoint spotting- this is normal and the spots can range from brown to red. Do not try to scrub off, they will slough off in several days Swelling- this varies from person to person and generally resolves in 2-3 days Sunscreen- it is important to avoid sun exposure for 2 weeks post treatment as well as in between your treatments. Use sunscreen with UVA/UVB protection (either with zinc oxide or titanium dioxide) with an SPF of at least 30. Avoid direct sunlight and wear sun protective clothing (wide brimmed hat) Itching/dryness- These are common symptoms once the skin has healed initially. Flakiness and dry crusting will gradually clear. Use bland moisturizers only and/or moisturizing sunscreens. Avoid anti-aging moisturizers with AHA or retinol in them Makeup & sunscreen may be applied after 48 hours Unexpected complications and unwanted side effects such as blistering and scabbing rarely occur. Please call the office immediately if any of these develop What to expect later: More than one treatment is needed to achieve desired results. Both you and your doctor can discuss the number of treatments needed, that are spaced apart at a minimum of 4-6 weeks Over the following weeks and months there will be progressive improvement and evolution of beneficial changes associated with the appearance of healthy youthful skin If you have any questions or concern, please call the office at [phone] Juju Baez MD Dermatology & Cosmetic Surgery documented in this encounter [facility] 01-26-2022 History of Presen t illness Narrative Nose improving- texture & color , happy with results Vbeam then Fraxel LASER SURGERY PROCEDURAL TIME OUT: Time out verification includes: Audible time-out documented: Yes. Time: 7:48 AM Two Patient Identifiers Correct side and site marking Accurate Consent Agreement on the procedure to be done Correct Positioning Imaging and Test Results Properly Labeled and Displayed if applicable Safety Precautions Based on Patient History or Medication ANESTHETIC: 23% lidocaine / 7% tetracaine ointment x 30 min at home DX: rhinophyma / telengiectasia LASER PROCEDURE: Cutaneous Vascular Proliferative Lesion PROTECTIVE EYEWEAR APPLIED TO PATIENT'S EYES: goggles. ALL PERSONNEL IN THE ROOM ARE WEARING PROTECTIVE GOGGLES SPECIFIC TO THE LASER WAVELENGTH FOR THIS TREATMENT. TREATMENT #: 16 LASER: V BEAM SPOT SIZE:10 mm; ENERGY FLUENCE: 7.5J/cm2; MODE (TIME): 6 msec; SPRAY DELAY: 30/20;NUMBER OF PULSES: 40 -2 passes to nose COMMENTS: Patient tolerated procedure well. and Post care instructions provided, understanding verbalized. Sign Out Discussion: Completed Post op instructions given / with verbal understanding Skin Care after Laser Treatment. NONABLATIVE FRACTIONAL RESURFACING (FRAXEL DUAL) Pre-photos & informed consent obtained prior to first treatment. Treatment: 11 Diagnosis: scar Wavelength: 1550 nm Treatment area: nose Energy (mJ): 70 Treatment settin Passes screen: 8 Total energy (kJ): 0.3 Patient tolerated procedure well. Ice provided immediately after treatment for discomfort. Discussed redness, swelling, and peeling that will occur over the next several days. Patient to use liberal emollient use with Aquaphor or Vaseline. No make up for 4 days. Ice and written post care instructions provided. 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 Most of the redness and swelling subsides within 24 to 48 hours, but occasionally can last for up to one week. -It is fine to wear makeup on the treated area the day after treatment -Do not rub, scratch, or pick at the treated area -You may apply ice to reduce swelling and discomfort for the first 4 hours after your treatment- it is best to ice immediately after your treatment and for 10 minutes of each hour for the 4 hours after your treatment -Do not exercise for 24 hours after your treatment -Please call the office immediately if the area becomes tender, reddened or shows signs of infection. - Avoid exposure to the sun. If sun exposure is expected, apply an SPF 30 or higher sunblock to prevent pigmentation changes until the lesion is healed. Care Of The Treated Area -You can apply a gentle moisturizer or Aqpahor/Vaseline to the treated area. It is important to keep the area moist until healed. -Showers are permitted, but gently pat the area dry. Do not rub with a towel or washcloth as the area is extremely delicate while the bruising (purpura) are present. -Any discomfort you may have (usually not lasting more than a few hours, if any) can be relieved with acetaminophen (Tylenol) or ice packs. If you have any questions or concern, please call the office where you had your treatment. [phone] ([place]) or [phone] ([facility]) Juju Baez MD Dermatology & Cosmetic Surgery [employer] Instructions Pre-treatment instructions: Tell your doctor if you are taking Isotretinoin (Accutane) or have taken in the last 6 months Avoid having a suntan or using a spray ruby/brozer before treatment You cannot be treated if you are Treatment: When you arrive, a topical anesthetic will be applied to your skin for approximately 1 hour. It is best to arrive with clean skin. You may wish to bring something to help you pass the time (ie book, laptop, iPad, magazine) The length of your time in the office varies, but is usually ~90 minutes. Although there can be some areas treated that feel sensitive, the laser is generally well tolerated Post treatment: Any gentle cleanser is fine (Dove, Cetaphil, Neutrogena). Do not use any harsh, anti-aging/exfoliating cleansers, medications, or scrubs for 1 week after your treatment. You will experience a sunburn-like, burning sensation for about 1 hour after your treatment, then virtually no discomfort. Some areas can feel more sensitive to touch for slightly longer Cool compresses or ice packs are used post treatment for comfort and to decrease swelling. It is fine to take ibuprofen/tylenol for discomfort What to expect in the days after treatment: Redness- You will notice a pink/red tone to your skin for 4-7 days. This is a normal sign that the skin is healing. Some areas can turn to a bronze-like color and last for a few weeks. This is normal. Pinpoint spotting- this is normal and the spots can range from brown to red. Do not try to scrub off, they will slough off in several days Swelling- this varies from person to person and generally resolves in 2-3 days Sunscreen- it is important to avoid sun exposure for 2 weeks post treatment as well as in between your treatments. Use sunscreen with UVA/UVB protection (either with zinc oxide or titanium dioxide) with an SPF of at least 30. Avoid direct sunlight and wear sun protective clothing (wide brimmed hat) Itching/dryness- These are common symptoms once the skin has healed initially. Flakiness and dry crusting will gradually clear. Use bland moisturizers only and/or moisturizing sunscreens. Avoid anti-aging moisturizers with AHA or retinol in them Makeup & sunscreen may be applied after 48 hours Unexpected complications and unwanted side effects such as blistering and scabbing rarely occur. Please call the office immediately if any of these develop What to expect later: More than one treatment is needed to achieve desired results. Both you and your doctor can discuss the number of treatments needed, that are spaced apart at a minimum of 4-6 weeks Over the following weeks and months there will be progressive improvement and evolution of beneficial changes associated with the appearance of healthy youthful skin If you have any questions or concern, please call the office at [phone] Juju Baez MD Dermatology & Cosmetic Surgery documented in this encounter [facility] Evaluation note Diagnosis Encounter for [facility] procedure- [facility] Scar conditions and fibrosis of skin- Primary 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 [facility] Scar conditions and fibrosis of skin- Primary Scar condition and fibrosis of skin Rosacea [facility] Diagnosis Scar conditions and fibrosis of skin- Primary Scar condition and fibrosis of skin Rosacea [facility] Scar conditions and fibrosis of skin- Primary Scar condition and fibrosis of skin Rosacea documented in this encounter [facility] note* Diagnosis Scar conditions and fibrosis of skin- Primary Scar condition and fibrosis of skin Rosacea Achrochordon Unspecified hypertrophic and atrophic condition of skin documented in this encounter [facility] note* Diagnosis Scar conditions and fibrosis of skin- Primary Scar condition and fibrosis of skin Rosacea documented in this encounter [facility] note* Diagnosis Scar conditions and fibrosis of skin- Primary 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 documented in this encounter [facility] note* Diagnosis Scar conditions and fibrosis of skin- Primary 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 Rosacea documented in this encounter [facility] note* Diagnosis Encounter for cosmetic procedure- Primary documented in this encounter [facility] note* Diagnosis Scar conditions and fibrosis of skin- Primary 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 Sebaceous hyperplasia Other specified disease of sebaceous glands documented in this encounter [facility] note* Diagnosis Rash- Primary Rash and other nonspecific skin eruption documented in this encounter [facility] note* Diagnosis Acute dermatitis- Primary Contact dermatitis and other eczema, due to unspecified cause documented in this encounter [facility] Summary Purpose Family History No Family History Records FoundNo Family History Records FoundNo Family History Records FoundNo Family History Records FoundNo Family History Records Found Advance Directives No Advanced Directives Records FoundNo Advanced Directives Records FoundNo Advanced Directives Records FoundNo Advanced Directives Records FoundNo Advanced Directives Records Found Additional Source Comments (unrecognized sect ion and content) No Status Records FoundNo Status Records FoundNo Status Records FoundNo Status Records FoundNo Status Records Found INFORMATION SOURCE (unrecogn ized section and content) DATE CREATED AUTHOR 10/30/2018 [employer] DATE CREATED AUTHOR AUTHOR'S ORGANIZ ATION 02/22/2019 [facility] includes the [facility] ([place] DATE CREATED AUTHOR AUTHOR'S ORGANIZ ATION 03/01/2025 [facility] DATE CREATED AUTHOR AUTHOR'S ORGANIZ ATION 03/16/2025 [facility] DATE CREATED AUTHOR AUTHOR'S ORGANIZ ATION 03/22/2025 [employer] [facility] Source Comments (unrecognize d section and content) In the event this informatio n is protected by the Federal Confidentiality of Alcohol and Drug Abuse Patient Records regulations: The Federal rules restrict any use of the information to criminally investigate or prosecute any alcohol or drug abuse patient.[facility] the event this information is protected by the Federal Confidentiality of Alcohol and Drug Abuse Patient Records regulations: The Federal rules restrict any use of the information to criminally investigate or prosecute any alcohol or drug abuse patient.[facility] the event this information is protected by the Federal Confidentiality of Alcohol and Drug Abuse Patient Records regulations: The Federal rules restrict any use of the information to criminally investigate or prosecute any alcohol or drug abuse patient.[facility] the event this information is protected by the Federal Confidentiality of Alcohol and Drug Abuse Patient Records regulations: The Federal rules restrict any use of the information to criminally investigate or prosecute any alcohol or drug abuse patient.[facility] the event this information is protected by the Federal Confidentiality of Alcohol and Drug Abuse Patient Records regulations: The Federal rules restrict any use of the information to criminally investigate or prosecute any alcohol or drug abuse patient.[facility] the event this information is protected by the Federal Confidentiality of Alcohol and Drug Abuse Patient Records regulations: The Federal rules restrict any use of the information to criminally investigate or prosecute any alcohol or drug abuse patient.[facility] the event this information is protected by the Federal Confidentiality of Alcohol and Drug Abuse Patient Records regulations: The Federal rules restrict any use of the information to criminally investigate or prosecute any alcohol or drug abuse patient.[facility] the event this information is protected by the Federal Confidentiality of Alcohol and Drug Abuse Patient Records regulations: The Federal rules restrict any use of the information to criminally investigate or prosecute any alcohol or drug abuse patient.[facility] the event this information is protected by the Federal Confidentiality of Alcohol and Drug Abuse Patient Records regulations: The Federal rules restrict any use of the information to criminally investigate or prosecute any alcohol or drug abuse patient.[facility] the event this information is protected by the Federal Confidentiality of Alcohol and Drug Abuse Patient Records regulations: The Federal rules restrict any use of the information to criminally investigate or prosecute any alcohol or drug abuse patient.[facility] the event this information is protected by the Federal Confidentiality of Alcohol and Drug Abuse Patient Records regulations: The Federal rules restrict any use of the information to criminally investigate or prosecute any alcohol or drug abuse patient.[facility] the event this information is protected by the Federal Confidentiality of Alcohol and Drug Abuse Patient Records regulations: The Federal rules restrict any use of the information to criminally investigate or prosecute any alcohol or drug abuse patient.[facility] the event this information is protected by the Federal Confidentiality of Alcohol and Drug Abuse Patient Records regulations: The Federal rules restrict any use of the information to criminally investigate or prosecute any alcohol or drug abuse patient.[facility] the event this information is protected by the Federal Confidentiality of Alcohol and Drug Abuse Patient Records regulations: The Federal rules restrict any use of the information to criminally investigate or prosecute any alcohol or drug abuse patient.[facility] Reason for Visit (unrecogniz ed section and content) Reason Comments Procedure Specialty Diagnoses / Procedures Referred By Babita maher Referred To Contact Dermatology / DERMATOLOGY Diagnoses Rhinophyma Telangiectasia rhinophyma / telengiectasia Procedures [place] [address] [place] [address] Juju Baez MD [address] [place] [address] Referral ID Status Reason Start Date Expiration Date V isits Requested Visits Authorized [id number] Pending Review 11/28/2021 02/26/2022 1 1 Reason Comments Derm Laser Surgery Specialty Diagnoses / Procedures Referred By Contac t Referred To Contact Dermatology / DERMATOLOGY Diagnoses Scar conditions and fibrosis of skin Local infection of the skin and subcutaneous tissue, unspecified Hypertrophic disorder of the skin, unspecified 2 MONTH FOLLOW UP-LASER TREATMENT (INSURANCE) Request for insurance coverage: ICD 10 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 Stated that he has has syphilis biopsy done that was negative. Care Teams (unrecognized sec tion and content) [employer] Relationship Specialty Start Date End Date Kevin Crawley MD [address] [place] [address] PCP - General Family Practice 07/16/17 [employer] Farm[employer] Relationship Specialty Start Date End Date Kevin Crawley MD [address] [place] [address] PCP - General Family Medicine 07/16/17 [employer] Farmworker Relationship Specialty Start Date End Date Kevin Crawley MD [address] [place] [address] PCP - General Family Medicine 07/16/17 [employer] Farmworker Relationship Specialty Start Date End Date Kevin Crawley MD [address] [place] [address] PCP - General Family Medicine 07/16/17 [employer] Farmworker Relationship Specialty Start Date End Date Kevin Crawley MD [address] [place] [address] PCP - General Family Medicine 07/16/17 [employer] Farmworker Relationship Specialty Start Date End Date Kevin Crawley MD [address] [place] [address] PCP - [facility] 07/16/17 [employer] Farmworker Relationship Specialty Start Date End Date Kevin Crawley MD [address] [place] [id number] PCP - General [facility] 07/16/17 [employer] Farmworker Relationship Specialty Start Date End Date Kevin Crawley MD [address] [place] [address] PCP - [facility] 07/16/17 FOR RECORDS PERTAINING TO PATIENTS WHO ARE OR HAVE BEEN ENROLLED IN A CHEMICAL DEPENDENCY/SUBSTANCEABUSE PROGRAM, SOME INFORMATION MAY BE OMITTED. This clinical summary was aggregated from multiple sources. Caution should be exercised in using it in the provision of clinical care. This summary normalizes information from multiple sources, and as a consequence, information in this document may materially change the coding, format and clinical context of patient data. In addition, data may be omitted in some cases. CLINICAL DECISIONS SHOULD BE BASED ON THE PRIMARY CLINICAL RECORDS. [employer] [facility]. provides no warranty or guarantee of the accuracy or completeness of information in this document.
[2025-04-16 12:08] LABS: H. PYLORI STOOL AG Negative (Negative)
== END | disposition home or self-care (01) ==
LOC: LABSPEC 10:42
PROVIDERS: Referring Provider Student in an Organized Health Care Education/Training Program; Visit Provider Student in an Organized Health Care Education/Training Program
DX: R19.5 Other fecal abnormalities (principal); A04.8 Other specified bacterial intestinal infections
CPT/HCPCS: 87338